=== PATIENT | male | born 1940 | race Caucasian/White ===

== ENCOUNTER 2018-05-14 16:15 | Inpatient (IN) | payer MEDICARE, BC ==
[~2018-05-14] VITALS: Ht 182.9 cm; Wt 86.2 kg
--- NOTE | 2018-05-14 17:26 | NUR ---
PT'S INSULIN PUMP PLAED IN STAND-BY MODE PER VERBAL ORDER PER EDP DR. MARTINEZ. PT'S UNSURE HOW TO DISCONNECT INSULIN PUMP, THEREFORE PUMP REMIANS ATTACHED, BUT NOT ACTIVE.
[2018-05-14 17:45] LABS: MAGNESIUM - SERUM 1.8 mg/dL (1.8-2.4)
--- NOTE | 2018-05-14 18:00 | NUR ---
COMPLETE LINEN CHANGE PERFORMED AFTER EPISODE OF URINARY INCONTINENCE.
--- NOTE | 2018-05-14 18:24 | NUR ---
URINE SENT TO THE LAB AT THIS TIME. COLLECTED VIA CLEAN CATCH.
[2018-05-14 18:53] LABS: APPEARANCE CLEAR (CLEAR); BILIRUBIN NEGATIVE (NEGATIVE); COLOR YELLOW (YELLOW); GLUCOSE NEGATIVE (NEGATIVE); KETONE NEGATIVE (NEGATIVE); NITRITE NEGATIVE (NEGATIVE); PROTEIN NEGATIVE (NEGATIVE); UROBILINOGEN NORMAL (NORMAL)
--- NOTE | 2018-05-14 19:03 | MORECARE ---
CASE MANAGEMENT DISCHARGE SUMMARY PATIENT: MELISSA PETTY UNIT: [id number] ADM DATE: 05/14/18 AGE: 78 : 40 SEX: M ROOM/BED: D.2225 AUTHOR: MANUEL CADET PHYSICIAN: REFERRING PHYSICIAN: PHILLIP BARAHONA MD DATE OF SERVICE: 05/14/18 Discharge Plan Patient Name: MELISSA PETTY [facility] [facility] 1940 Planned Disposition: Anticipated Discharge Date: 05/17/18 Discharge Date: Expected LOS: 3 Initial Reviewer: [email or web address] Initial Review Date: 05/14/2018 Generated: 05/14/18 8:03 pm Patient Name: MELISSA PETTY Page 04715 at 1903 All edits/amendments must be made on the electronic document DICTATION DATE: 05/14/181902 INTEGRATED CIRCUITS INSPECTOR: AILYN 05/14/181902 RPT#: [id number] DC DATE: STATUS: ADM IN [facility] [address] [place] [address] END OF REPORT
--- NOTE | 2018-05-14 19:10 | MORECARE ---
CASE MANAGEMENT DISCHARGE SUMMARY PATIENT: MELISSA PETTY UNIT: [id number] ADM DATE: 05/14/18 AGE: 78 : 40 SEX: M ROOM/BED: D.2225 AUTHOR: MANUEL CADET PHYSICIAN: REFERRING PHYSICIAN: PHILLIP BARAHONA MD DATE OF SERVICE: 05/14/18 Discharge Plan Patient Name: MELISSA PETTY Facility: [facility]:[place] : 1940 Planned Disposition: Anticipated Discharge Date: 05/17/18 Discharge Date: Expected LOS: 3 Initial Reviewer: [email or web address] Initial Review Date: 05/14/2018 Generated: 05/14/18 8:10 pm DCPIA - Discharge Planning Initial Assessment Updated by [id number]: Zenobia Laureano on 05/14/18 7:06 pm * Is the patient Alert and Oriented? Yes * How many steps to enter\exit or inside your home? None * PCP Dr. Baldwin in [place] * Pharmacy [facility] in [place] * Preadmission Environment Home with Family * ADLs Independent * Equipment Cane Glucometer Rolling Walker * Other Equipment Insulin pump * List name and contact numbers for known caregivers / representatives who currently or will assist patient after discharge: Berenice Petty - - [phone] * Verbal permission to speak to the caregivers and representatives has been obtained from the patient. Yes * Community resources currently utilized Home Health * Please name any agencies selected above. [facility] - has a picc line he is on 6 weeks IV therapy for foot wound. He goes to the wound clinic in [place] under Dr. Diego. Last scheduled dose of IV antibiotic is tentatively set for 05/20/18. * Additional services required to return to the preadmission environment? Yes * Can the patient safely return to the preadmission environment? No * Has this patient been hospitalized within the prior 30 days at any hospital? Yes Last DP export: 05/14/18 6:03 p Patient Name: MELISSA PETTY Page 18730 at 1910 All edits/amendments must be made on the electronic document DICTATION DATE: 05/14/181909 INTERNET SALES MANAGER: AILYN 05/14/181909 RPT#: [id number] DC DATE: STATUS: ADM IN [facility] [address] [place] [address] END OF REPORT
[2018-05-14 19:13] LABS: RED CELLS - URINE OCC /hpf (0-5); WHITE CELLS - URINE OCC /hpf (0-5)
--- NOTE | 2018-05-14 19:18 | MORECARE ---
CASE MANAGEMENT DISCHARGE SUMMARY PATIENT: MELISSA PETTY UNIT: [id number] ADM DATE: 05/14/18 AGE: 78 : 40 SEX: M ROOM/BED: D.2225 AUTHOR: HELIO,DOC PHYSICIAN: REFERRING PHYSICIAN: PHILLIP BARAHONA MD DATE OF SERVICE: 05/14/18 Discharge Plan Patient Name: MELISSA PETTY Facility: [facility]:[place] : 1940 Planned Disposition: Anticipated Discharge Date: 05/17/18 Discharge Date: Expected LOS: 3 Initial Reviewer: [email or web address] Initial Review Date: 05/14/2018 Generated: 05/14/18 8:18 pm DCP- Discharge Planning Updated by [email or web address]: Zenobia Laureano on 05/14/18 6:[address] Patient Name: MELISSA PETTY Admission Status: ER Accout number: [id number] Admission Date: 05-14-2018 : 1940 Admission Diagnosis: Attending: PHILLIP BARAHONA Current LOS: 1 Anticipated DC Date: 05-17-2018 Planned Disposition: Primary Insurance: MEDICARE A & B Discharge Planning Comments: CM met with patient and his to complete initial dc planning assessment. CM educated patient's on the CM role and verbal consent given by patient's to complete assessment. Patient lives at home with his and is normally independent in his care. He has been on IV antibiotics for a 6 week regimen for a foot wound. He has [facility] and is seen by the Wound Clinic at [place]. At discharge patient's plans to take him home with resumption of home health. Confusion is new onset for the patient and this is the second time in the past week he has gotten confused. Patient denied known discharge needs at this time. CM will continue to follow and will assist as needed with dc plans/needs. Corporate Account Executive: Zenobia Laureano RN, [facility] DCPIA - Discharge Planning Initial Assessment Updated by [email or web address]: Zenobia Laureano on 05/14/18 7:06 pm * Is the patient Alert and Oriented? Yes * How many steps to enter\exit or inside your home? None * PCP Dr. Baldwin in [place] * Pharmacy [facility] in [place] * Preadmission Environment Home with Family * ADLs Independent * Equipment Cane Glucometer Rolling Walker * Other Equipment Insulin pump * List name and contact numbers for known caregivers / representatives who currently or will assist patient after discharge: Berenice Petty - - [phone] * Verbal permission to speak to the caregivers and representatives has been obtained from the patient. Yes * Community resources currently utilized Home Health * Please name any agencies selected above. [facility] - has a picc line he is on 6 weeks IV therapy for foot wound. He goes to the wound clinic in [place] under Dr. Diego. Last scheduled dose of IV antibiotic is tentatively set for 05/20/18. * Additional services required to return to the preadmission environment? Yes * Can the patient safely return to the preadmission environment? No * Has this patient been hospitalized within the prior 30 days at any hospital? Yes Last DP export: 05/14/18 6:10 p Patient Name: MELISSA PETTY Page 00507 at 1918 All edits/amendments must be made on the electronic document DICTATION DATE: 05/14/181916 TOP DISTRIBUTION EXECUTIVE: AILYN 05/14/181916 RPT#: [id number] DC DATE: STATUS: ADM IN [facility] [address] [place] [address] END OF REPORT
[2018-05-14 21:50] VITALS: BP 144/76
--- NOTE | 2018-05-15 03:07 | NUR ---
REC;D, TO RM. 2225 VIA STRETCHER FROM ER. IN ATTENDANCE. FAMILY REQUESTING TO KNOW.WHY PATIENT IS BEING ADMITTED TO HOSPITAL. ASKED SPOUSE DID YOU TALK TO ER PHYSICIAN REGUARDING ADMITTING DIAGNOSIS.REQUESTING TO SPEAK TO ADMITTING PHYSICIAN.DR. BARAHONA AT NURSES STATION.CHARGE NURSE YESENIA ELAINE INFORMED OF REQUEST AND VERBALLY INFORMED HIM OF NEW ADMIT PLUS ADDITIONAL ORDERS IF ANY. WILL CONTINUE TO MONITOR FOR ANY CHGES. AND FOLLOW CURRENT PLAN OF CARE. ABOVE DISCUSSED WITH PRADEEP AND YESICA [employer] SUPERVISORS
[2018-05-15 03:17] VITALS: BMI 22.4
[2018-05-15 04:19] LABS: BASOPHILS 0.2 % (0-2); HEMATOCRIT 30.1 % (42.0-54.0); HEMOGLOBIN 9.5 g/dL (13.5-17.5); IMMATURE GRANULOCYTES 0.6 % (0-5); LYMPHOCYTES 8.3 % (15-50); MCHC 31.6 g/dL (31.0-37.0); MEAN PLATELET VOLUME 10.4 fL (7.4-10.4); MONOCYTES 8.7 % (2-11); NEUTROPHILS 81.2 % (40-80); PLATELET COUNT 125 10x3/uL (130-400); RBC 3.96 10x6/uL (4.20-6.10); RDW 19.6 % (11.5-14.5); WBC 8.8 10x3/uL (4.8-10.8)
[2018-05-15 04:29] LABS: ANION GAP 25.1 mmol/L (8-16); CALCIUM 9.1 mg/dL (8.5-10.1); CARBON DIOXIDE 15.8 mmol/L (21.0-32.0); CREATININE - SERUM 5.4 mg/dL (0.6-1.3); POTASSIUM - SERUM 4.9 mmol/L (3.5-5.1)
--- NOTE | 2018-05-15 04:34 | NUR ---
PT LYING IN BED RESTING, NO SIGNS OF DISTRESS. FAMILY AT BEDSIDE. DARNELL ON. DENIES NEEDS AT THIS TIME. CL IN REACH
--- NOTE | 2018-05-15 07:20 | NUR ---
PT RESTING IN BED, EYES CLOSED. AT BEDSIDE. NO C/O PAIN. NO S/S OF ACUTE DISTRESS NOTED. PT ORIENTED TO PERSON ONLY. PT CONFUSED. IN RENAL FAILURE. PT FALL RISK, DARNELL ALARM ON AND WORKING. PT HAS INSULIN PUMP, ER DISCONNECTED IT. PT DIABETIC. IV TO LEFT AC, SITE PATENT WITHOUT REDNESS OR SWELLING. NS INFUSING AT 125ML/HR. PICC TO RIGHT UPPER ARM, SITE PATENT WITHOUT REDNESS OR SWELLING, SL. CLOSED WOUNDS TO RIGHT FOOT, DRESSING CDI. PT DENIES ANYTHING FURTHER AT THIS TIME. CALL LIGHT IN REACH. FALL PRECAUTIONS IN PLACE. WILL CONTINUE TO MONITOR.
[2018-05-15 08:47] VITALS: BP 126/56
[2018-05-15 08:49] LABS: % SATURATION 18 % (15-55); IRON 61 ug/dl (35-150); TOTAL IRON BIND CAPACITY 337 ug/dl (260-445); UNSAT IRON BIND CAPACITY 276 ug/dl (150-375)
[2018-05-15] MEDS ORDERED: ELIQUIS2.5 MG PO (08:51)
[2018-05-15] MEDS ORDERED: CYMBALTA60 MG PO (08:52)
[2018-05-15] MEDS ORDERED: ROPINIROLE HCL2 MG PO ×2 (08:55→08:57)
[2018-05-15] MEDS ORDERED: MAXIPIME1 GM IV (08:59)
[2018-05-15] MEDS ORDERED: TRAVATAN Z2.5 ML EACH EYE (08:59)
[2018-05-15] MEDS ORDERED: LASIX80 MG PO (09:00)
[2018-05-15] MEDS ORDERED: PEPCID AC20 MG PO (09:01)
[2018-05-15] MEDS ORDERED: SODIUM BICARBO650 MG PO (09:02)
[2018-05-15] MEDS ORDERED: HUMALOG 30100 UNITS/ SC (09:05)
--- NOTE | 2018-05-15 10:00 | NUR ---
PLACED HARPER, 16FR, 10ML NS TO INFLATE BALLOON. HARPER PLACED FOR STRICT I&O'S. PT IN RENAL FAILURE. NO C/O PAIN. NO S/S OF ACUTE DISTRESS NOTED. AT BEDSIDE. FALL PRECAUTIONS IN PLACE. WILL CONTINUE TO MONITOR.
[2018-05-15 12:19] VITALS: BP 126/43
[2018-05-15 12:31] VITALS: BMI 22.3
--- NOTE | 2018-05-15 18:53 | NUR ---
PT RESTING IN BED, EYES CLOSED. RESPIRATIONS EVEN AND UNLABORED. NO C/O PAIN. NO S/S OF DISTRESS NOTED. AT BEDSIDE. FALL PRECAUTIONS IN PLACE. PT DENIES ANYTHING FURTHER AT THIS TIME. CALL LIGHT IN REACH. BED IN LOWEST POSITION. WILL CONTINUE TO MONITOR.
[2018-05-15 20:08] VITALS: BP 137/51
[2018-05-16] VITALS (16 sets, daily range): BP systolic 95–150; BP diastolic 49–69; Ht 182.9 cm; Wt 86.2 kg
--- NOTE | 2018-05-16 02:47 | NUR ---
REC'D. IN BED AT BEDSIDE DR. BARAHONA HERE.EYES OPEN WHEN NAME CALLED, BUT REMAINS SOMEWHAT LETHARGIC. REIENFORCED TO NPO TILL MORE ALERT NOT TO ASPIRATE. VOICES UNDERSTANDING,WILL CONTINUE TO MONITOR FOR ANY CHGES.AND FOLLOW CURRENT PLAIN OF CARE
--- NOTE | 2018-05-16 03:39 | NUR ---
PT RESTING WITH EYES CLOSED. BREATHING EVEN AND UNLABORED. FAMILY AT BEDSIDE. DENIES NEEDS AT THIS TIME. INFORMED THAT ROLLER HAND WOULD BE ALONG SHORTLY. WILL CONTINUE POC.
[2018-05-16 07:30] LABS: BASOPHILS 0.3 % (0-2); EOSINOPHILS 0.6 % (0-7); HEMATOCRIT 33.1 % (42.0-54.0); HEMOGLOBIN 10.4 g/dL (13.5-17.5); IMMATURE GRANULOCYTES 0.7 % (0-5); LYMPHOCYTES 7.8 % (15-50); MCH 24.1 pg (26.0-34.0); MCHC 31.4 g/dL (31.0-37.0); MCV 76.8 fL (80.0-100.0); MEAN PLATELET VOLUME 10.3 fL (7.4-10.4); MONOCYTES 19.9 % (2-11); NEUTROPHILS 70.7 % (40-80); RBC 4.31 10x6/uL (4.20-6.10); RDW 20.1 % (11.5-14.5)
--- NOTE | 2018-05-16 07:30 | NUR ---
REPORT RECIEVED ASSUMED CARE. PATIENT IN BED WITH IV INTACT. O2 SATS DOWN TO 82% O2 ON 2LNC. TURNED UP TO 4 LNC. SATS UP TO 88, 89%. PATIENT LUNG SOUNDS ARE CRACKLEY AND LUNGS SOUND FULL OF FLUID. NIGHT NURSE STATED HARDLY ANY URINE O/P OVER NIGHT. PATIENT BP 115/43. HARPER INTACT. FAMILY AT BEDSIDE. EXPLAINED TO FAMILY I WOULD TALK TO PHYSICIAN ABOUT PATIENT'S LUNG SOUND, BREATHING AND URINE O/P. VERBALIZED UNDERSTANDING.
[2018-05-16 07:31] LABS: PLATELET COUNT 195 10x3/uL (130-400); WBC 15.4 10x3/uL (4.8-10.8)
[2018-05-16 07:58] LABS: ANION GAP 29.3 mmol/L (8-16); CALCIUM 9.2 mg/dL (8.5-10.1); CARBON DIOXIDE 13.4 mmol/L (21.0-32.0)
--- NOTE | 2018-05-16 08:00 | NUR ---
IWLLIAM SMITH NOTIFIED ABOUT PATIENTS BREATHING, URINE OP, AND POTASSIUM 6.7. STATED SHE WOULD TAKE A LOOK AT HIM. NEW ORDERS RECIEVED AND CARRIED OUT.
[2018-05-16 08:05] LABS: CREATININE - SERUM 7.4 mg/dL (0.6-1.3)
[2018-05-16 08:07] LABS: POTASSIUM - SERUM 6.7 mmol/L (3.5-5.1)
--- NOTE | 2018-05-16 08:20 | NUR ---
NGT ATTEMPTED X 2 PER ORDER TO GET KAYEXELATE DOWN. PATIENT FIGHTING AND MOVING TOO MUCH TO GET NGT DOWN. NOTFIED WILLIAM. NO NEW ORDERS RECIEVED AT THIS TIME. WENT BACK TO ROOM. PATIENT STRUGGLING TO BREATHE. CHRISTIANE BERNAL AT BS. RAPID RESPONSE CALLED AT THIS TIME.
[2018-05-16 09:19] LABS: FOLATE (FOLIC ACID) - SERUM 18.8 ng/mL (>3.0)
--- NOTE | 2018-05-16 10:15 | NUR ---
RECEIVED PATIENT BY BED AT THIS TIME. CURRENTLY ON NONREBREATHER 100% OXYGEN. BP AND HEART RATE STABLE. NORMAL SINUS RHYTHM. O2 SAT 100%. TEMPERATURE 96.1. PATIENT LETHARGIC AND DISORIENTED. WILL OBTAIN NEW ORDERS AND CONTINUE TO MOPNITOR
--- NOTE | 2018-05-16 10:20 | NUR ---
ALL MEDS ORDERED AND GIVEN FROM RENAL AND DURING RAPID. PATIENT AC IV REMOVED DURING RAPID DUE TO LEAKING. PATIENT HAS RIGHT PICC FLUSHES WELL AND WNL. PATIENT MOVED AT THIS TIME TO 2301 PER ORDERS.
--- NOTE | 2018-05-16 11:20 | NUR ---
tRIALYSIS CATHETER PLACED BY LUIS ALCARAZ IN RIGHT INTERNAL JUGULAR. STAT CHEST X-RAY ORDERED.
[2018-05-16 12:15] LABS: COMPLEMENT C4 15.2 mg/dL (17.4-52.2)
--- NOTE | 2018-05-16 12:15 | NUR ---
DIALYSIS VIA TRIALYSIS CATHETER INITIATED AT THIS TIME.
[2018-05-16 12:20] LABS: BASOPHILS 0.2 % (0-2); EOSINOPHILS 0.2 % (0-7); HEMATOCRIT 31.7 % (42.0-54.0); HEMOGLOBIN 9.9 g/dL (13.5-17.5); IMMATURE GRANULOCYTES 0.3 % (0-5); LYMPHOCYTES 6.2 % (15-50); MCH 24.1 pg (26.0-34.0); MCHC 31.2 g/dL (31.0-37.0); MCV 77.1 fL (80.0-100.0); MONOCYTES 5.5 % (2-11); NEUTROPHILS 87.6 % (40-80); PLATELET COUNT 166 10x3/uL (130-400); RBC 4.11 10x6/uL (4.20-6.10); RDW 19.8 % (11.5-14.5); WBC 12.8 10x3/uL (4.8-10.8)
[2018-05-16 12:21] LABS: CALCIUM 9.2 mg/dL (8.5-10.1); CHOL - HDL RATIO 2.8 ratio (2.3-4.9); CREATININE - SERUM 7.6 mg/dL (0.6-1.3); LDL-HDL RATIO 1.5 ratio (1.5-3.5)
[2018-05-16 12:23] LABS: ANION GAP 24.7 mmol/L (8-16); CARBON DIOXIDE 17.7 mmol/L (21.0-32.0); POTASSIUM - SERUM 5.4 mmol/L (3.5-5.1)
[2018-05-16 12:26] LABS: PHOSPHOROUS 10.3 mg/dL (2.5-4.9)
--- NOTE | 2018-05-16 12:30 | NUR ---
HR AND B/P DROPPING AT THIS TIME, FAMILY AT BEDSIDE
--- NOTE | 2018-05-16 13:00 | NUR ---
DR. BARAHONA AT BEDSIDE, SPOKE AT LENGTH WITH PT FAMILY, NO NEW ORDERS AT THIS TIME,
--- NOTE | 2018-05-16 13:15 | NUR ---
B/P DROPPING AT THIS TIME, FAMILY AT BEDSIDE,
--- NOTE | 2018-05-16 14:19 | MORECARE ---
CASE MANAGEMENT DISCHARGE SUMMARY PATIENT: MELISSA PETTY UNIT: [id number] ADM DATE: 05/14/18 AGE: 78 : 40 SEX: M ROOM/BED: D.2301 AUTHOR: HELIO,DOC PHYSICIAN: REFERRING PHYSICIAN: PHILLIP BARAHONA MD DATE OF SERVICE: 05/16/18 Discharge Plan Patient Name: MELISSA PETTY Facility: [facility]:[place] : 1940 Planned Disposition: Anticipated Discharge Date: 05/17/18 Discharge Date: Expected LOS: 3 Initial Reviewer: [email or web address] Initial Review Date: 05/14/2018 Generated: 05/16/18 3:19 pm Comments DCP- Discharge Planning Updated by [email or web address]: Hoda Martinez on 05/16/18 1:[address] CM spoke with Cheri from [facility] [phone]. She stated they was actively seeing patient and would resume care upon discharge. Just to notify them upon discharge. CM will continue to follow and assist as needed with discharge planning / needs. DCP- Discharge Planning Updated by [id number]: Zenobia Laureano on 05/14/18 6:[address] Patient Name: MELISSA PETTY Admission Status: ER Accout number: [id number] Admission Date: 05-14-2018 : 1940 Admission Diagnosis: Attending: PHILLIP BARAHONA Current LOS: 1 Anticipated DC Date: 05-17-2018 Planned Disposition: Primary Insurance: MEDICARE A & B Discharge Planning Comments: CM met with patient and his to complete initial dc planning assessment. CM educated patient's on the CM role and verbal consent given by patient's to complete assessment. Patient lives at home with his and is normally independent in his care. He has been on IV antibiotics for a 6 week regimen for a foot wound. He has [facility] and is seen by the Wound Clinic at [place]. At discharge patient's plans to take him home with resumption of home health. Confusion is new onset for the patient and this is the second time in the past week he has gotten confused. Patient denied known discharge needs at this time. CM will continue to follow and will assist as needed with dc plans/needs. Dinkey Mechanic: Zenobia Laureano RN, [facility] DCPIA - Discharge Planning Initial Assessment Updated by [id number]: Zenobia Laureano on 05/14/18 7:06 pm * Is the patient Alert and Oriented? Yes * How many steps to enter\exit or inside your home? None * PCP Dr. Baldwin in [place] * Pharmacy [facility] in [place] * Preadmission Environment Home with Family * ADLs Independent * Equipment Cane Glucometer Rolling Walker * Other Equipment Insulin pump * List name and contact numbers for known caregivers / representatives who currently or will assist patient after discharge: Berenice Petty - - [phone] * Verbal permission to speak to the caregivers and representatives has been obtained from the patient. Yes * Community resources currently utilized Home Health * Please name any agencies selected above. [facility] - has a picc line he is on 6 weeks IV therapy for foot wound. He goes to the wound clinic in [place] under Dr. Diego. Last scheduled dose of IV antibiotic is tentatively set for 05/20/18. * Additional services required to return to the preadmission environment? Yes * Can the patient safely return to the preadmission environment? No * Has this patient been hospitalized within the prior 30 days at any hospital? Yes Last DP export: 05/14/18 6:18 p Patient Name: MELISSA PETTY Page 32240 at 1419 All edits/amendments must be made on the electronic document DICTATION DATE: 05/16/181417 DIABETOLOGIST: AILYN 05/16/181417 RPT#: [id number] DC DATE: STATUS: ADM IN [facility] [address] [place] [address] END OF REPORT
--- NOTE | 2018-05-16 15:00 | NUR ---
PATIENT resting IN BED WITH STABLE VS ON NONREBREATHER AT 100% O2. RESTRAINTS STILL NECESSARY TO KEEP PATIENT FROM PULLING OUT TRIALYSIS CATHETER. CHANGED ALL LINENS, GAVE BATH, AND TURNED TO LEFT SIDE. WILL CONTINUE TO MONITOR
--- NOTE | 2018-05-16 18:45 | NUR ---
ELEVATED HOB 30 DEGREES PER ORDER. TURNED TO RIGHT SIDE. O2 INFUSING VIA HIGH FLOW NC AT 13 LITERS/MIN. VSS.
--- NOTE | 2018-05-16 19:30 | NUR ---
ASSESSMENT COMPLETE, PER NURSING FLOWSHEET, PATIENT REPOSITIONED, ORAL CARE PROVIDED, PATIENT REMAINS IN SOFT BUE WRIST RESTRAINTS
--- NOTE | 2018-05-16 20:00 | NUR ---
DAUGHTER AT BEDSIDE, QUESTIONS ANSWERED, UPDATE GIVEN
--- NOTE | 2018-05-16 21:00 | NUR ---
PATIENT REPOSITIONED, ROM PERFORMED, CONTINUE POC
--- NOTE | 2018-05-16 23:00 | NUR ---
REASSESSMENT COMPLETE, PER NURSING FLOWSHEET, PATIENT REPOSITIONED, ORAL CARE PROVIDED, VSS
[2018-05-17] VITALS (24 sets, daily range): BP systolic 111–151; BP diastolic 48–86
--- NOTE | 2018-05-17 01:00 | NUR ---
PATIENT REPOSITIONED, HARPER CARE PROVIDED, NO OTHER NEEDS NOTED AT THIS TIME
--- NOTE | 2018-05-17 03:00 | NUR ---
RE-ASSESSMENT COMPLETE, PATIENT REPOSITIONED, ORAL CARE PROVIDED, CONTINUE POC
--- NOTE | 2018-05-17 05:00 | NUR ---
PATIENT REPOSITIONED, PARTIAL LINEN CHANGE, VSS
--- NOTE | 2018-05-17 05:30 | NUR ---
SON AT BEDSIDE, UPDATE GIVEN, QUESTIONS ANSWERED
[2018-05-17 05:32] LABS: HEMATOCRIT 28.6 % (42.0-54.0); HEMOGLOBIN 9.2 g/dL (13.5-17.5); MCH 24.1 pg (26.0-34.0); MCHC 32.2 g/dL (31.0-37.0); MEAN PLATELET VOLUME 10.8 fL (7.4-10.4); RBC 3.82 10x6/uL (4.20-6.10); RDW 19.9 % (11.5-14.5); WBC 13.1 10x3/uL (4.8-10.8)
[2018-05-17 05:33] LABS: MCV 74.9 fL (80.0-100.0); PLATELET COUNT 93 10x3/uL (130-400)
[2018-05-17 05:58] LABS: CALCIUM 8.6 mg/dL (8.5-10.1); CARBON DIOXIDE 18.5 mmol/L (21.0-32.0); CHLORIDE - SERUM 99 mmol/L (98-107); CREATINE KINASE 243 UL (21-232); CREATININE - SERUM 6.3 mg/dL (0.6-1.3); MAGNESIUM - SERUM 1.7 mg/dL (1.8-2.4); POTASSIUM - SERUM 4.7 mmol/L (3.5-5.1); SODIUM 139 mmol/L (136-145); eGFR NON AFRICAN AMERICAN 9 mL/min (90-120)
[2018-05-17 06:00] LABS: PHOSPHOROUS 7.6 mg/dL (2.5-4.9)
[2018-05-17 06:01] LABS: CALC OSMOLALITY 325 mosm/kg (275-300); GLUCOSE 402 mg/dL (74-106); UREA NITROGEN 98 mg/dL (7-18)
[2018-05-17 06:02] LABS: CKMB 23.5 U/L (0.0-3.6)
--- NOTE | 2018-05-17 06:59 | NUR ---
DR MILLIGAN NOTIFIED OF DESIREE MOJICA M.D. INPUTTING NEW ORDERS
--- NOTE | 2018-05-17 07:00 | NUR ---
[place] RESTING IN BED WITH STABLE VS. STILL LETHARGIC AND DISORIENTED X 4. SOFT WRIST RESTRAINTS STILL IN USE. ON O2 AT 11L/MIN. O2 SAT 95%. WILL CONTINUE TO MONITOR.
--- NOTE | 2018-05-17 07:08 | NUR ---
PATIENT BLADDER SCANNED X2, 27 MLS NOTED ON BOTH SCANS
[2018-05-17 07:56] LABS: LYMPHOCYTES 7 % (15-50); MONOCYTES 10 % (2-11); NEUTROPHILS 77 % (40-80); PLATELET ESTIMATE DECREASED
[2018-05-17 07:57] LABS: CRENATED CELLS OCC
--- NOTE | 2018-05-17 09:00 | NUR ---
PATIENT RESTING IN BED WITH STABLE VS. NOTIFIED WOUND CARE NURSE OF CONSULT FOR RIGHT FOOT ULCER. ALSO PROPPED FEET ON PILLOWS TO PREVENT BREAKDOWN. WILL CONTINUE TO MONITO
--- NOTE | 2018-05-17 09:33 | NUR ---
Nutrition follow-up: NPO due to confusion, lethargy per nursing Speech consult noted Labs unavailable at this time Wt: 165# First dialysis treatment 05/16 - again today Will need nutrition support if NPO x 48 hours RDN following.
[2018-05-17 11:00] LABS: CALCIUM 8.2 mg/dL (8.5-10.1); CREATININE - SERUM 6.6 mg/dL (0.6-1.3)
--- NOTE | 2018-05-17 11:00 | NUR ---
PULLED PATIENT UP, TURNED, AND ROLLED TO RIGHT SIDE. BED LINENS ARE CLEAN. NOTIFIED DR. BARAHONA OF CRITICAL TROPININ LAB AND ALSO ASKED IF HE WANTS TO TREAT LOW MAGNESIUM LEVEL. WAITING FOR ORDERS.
[2018-05-17 11:04] LABS: ANION GAP 20.3 mmol/L (8-16); CARBON DIOXIDE 23.7 mmol/L (21.0-32.0)
[2018-05-17 11:05] LABS: TROPONIN-I 0.335 ng/mL (0.000-0.060)
--- NOTE | 2018-05-17 11:06 | NUR ---
NOTIFIED PT NURSE ISAMAR OF CRITICAL GLUCOSE AND TROPONIN
--- NOTE | 2018-05-17 13:00 | NUR ---
PATIENT RESTING IN BED WITHS TABLE VITAL SINGS. TITRATED O2 DOWN TO 9 LITERS/MIN VIA NC TOLERATED. WILL CONTINUE TO MONITOR
[2018-05-17 14:26] LABS: ANA REFLEX - DBL STRANDED DNA 1 IU/mL (0-9); ANA REFLEX - DIRECT Negative (Negative)
[2018-05-17 15:29] LABS: SPE - ALBUMIN 3.1 g/dL (2.9-4.4); SPE - ALPHA-1 GLOBULIN 0.2 g/dL (0.0-0.4); SPE - ALPHA-2 GLOBULIN 0.6 g/dL (0.4-1.0); SPE - BETA GLOBULIN 0.9 g/dL (0.7-1.3); SPE - GAMMA GLOBULIN 1.3 g/dL (0.4-1.8); SPE - M-SPIKE Not Observed g/dL (Not Observed); SPE - TOTAL PROTEIN 6.1 g/dL (6.0-8.5)
--- NOTE | 2018-05-17 15:42 | NUR ---
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 It has yellow/virk wound bed and small amount of serous drainage. Right great toe has scab at the nail. Left great to has scab at the nail. Right #2 and #3 toes amputated. Recommend: covering wound on lateral foot with mepilex to protect.
--- NOTE | 2018-05-17 17:00 | NUR ---
VSS. PT STILL DISORTIENTED BUT SUPPOSED TO RECEIVE DIALYSIS TONIGHT. TURNED PATINED TO LEFT RIGHT SIDE. LINENS CLEAN AND DRY. WILL CONTINUE TO MONITOR
--- NOTE | 2018-05-17 19:30 | NUR ---
SHIFT ASSESSMENT COMPLETE PER NURSING FLOWSHEET, PATIENT REPOSITIONED, ORAL CARE PROVIDED, CONTINUE POC
--- NOTE | 2018-05-17 21:00 | NUR ---
PATIENT REPOSITIONED, SPOKE WITH ON PHONE, UPDATED GIVEN, QUESTIONS ANSWERED, WILL CONTINUE TO MONITOR
--- NOTE | 2018-05-17 23:00 | NUR ---
REASSESSMENT COMPLETE, PATIENT REPOSITIONED, ORAL CARE PROVIDED NO OTHER NEEDS NOTED AT THIS TIME
[2018-05-18] VITALS (24 sets, daily range): BP systolic 112–148; BP diastolic 50–86
--- NOTE | 2018-05-18 01:00 | NUR ---
PATIENT REPOSITIONED, HARPER CARE PROVIDED, DIALYSIS IN PROGRESS
--- NOTE | 2018-05-18 03:00 | NUR ---
REASSESSMENT COMPLETE, ORAL CARE PROVIDED, PATIENT REPOSITIONED, C/L IN REACH
[2018-05-18 04:52] LABS: BASOPHILS 0.2 % (0-2); EOSINOPHILS 0.4 % (0-7); HEMATOCRIT 28.2 % (42.0-54.0); HEMOGLOBIN 9.1 g/dL (13.5-17.5); IMMATURE GRANULOCYTES 0.3 % (0-5); LYMPHOCYTES 5.2 % (15-50); MCH 23.9 pg (26.0-34.0); MCHC 32.3 g/dL (31.0-37.0); MCV 74.2 fL (80.0-100.0); MEAN PLATELET VOLUME 9.7 fL (7.4-10.4); MONOCYTES 6.7 % (2-11); NEUTROPHILS 87.2 % (40-80); PLATELET COUNT 88 10x3/uL (130-400); RDW 19.5 % (11.5-14.5)
[2018-05-18 05:01] LABS: ANION GAP 17.1 mmol/L (8-16); CALCIUM 8.5 mg/dL (8.5-10.1)
[2018-05-18 05:02] LABS: CREATININE - SERUM 4.7 mg/dL (0.6-1.3); POTASSIUM - SERUM 3.1 mmol/L (3.5-5.1)
[2018-05-18 07:28] LABS: HEPATITIS BE ANTIGEN Negative (Negative)
--- NOTE | 2018-05-18 09:17 | NUR ---
PATIENT REPOSITIONED, COMPLETE LINEN CHANGE, NO OTHER NEEDS NOTED AT THIS TIME
--- NOTE | 2018-05-18 10:33 | NUR ---
CHANGED OUT ALL TUBING FOR IV FLUIDS/ABX, kCL RIDER. SWAB CAPS AND STICKERS APPLIED. TURNED O2 DOWN TO 5L/MIN DUE TO O2 SAT 96%. FAMILY MEMBER IN ROOM. WILL CONTINUE TO MONITOR
[2018-05-18 11:36] LABS: ANION GAP 14.2 mmol/L (8-16); CALCIUM 8.6 mg/dL (8.5-10.1); CREATININE - SERUM 5.2 mg/dL (0.6-1.3); POTASSIUM - SERUM 3.2 mmol/L (3.5-5.1)
--- NOTE | 2018-05-18 13:44 | NUR ---
DIALYSIS NURSE HERE TO START DIALYSIS. PT STABLE. FAMILY IN ROOM
--- NOTE | 2018-05-18 14:44 | NUR ---
TEMP 96.7. GAVE WARM BLANKET. PT RECEIVING DIALYSIS AT THIS TIME WITH FAMILY MEMBER IN ROOM. VSS.
--- NOTE | 2018-05-18 16:30 | NUR ---
DIALSIS COMPLETE. PATIENT VSS STABLE AND IS SEEMING A LITTLE LESS CONFUSED.
--- NOTE | 2018-05-18 18:00 | NUR ---
PROCEEDED TO DRESS RIGHT FOOT WOUND IT IS TREATED BY PATIENTS HOME HEALTH NURSE AT HOME (PER PATIENTS ). UNABLE TO CONTACT WOUND CARE NURSE TODAY.
--- NOTE | 2018-05-18 19:15 | NUR ---
THIS NURSE ACCOMPANINED PATIENT TO CT
[2018-05-18 19:35] LABS: APTT 37.8 SECONDS (22.8-39.4); INR 1.49 (0.85-1.17); PROTIME 17.5 SECONDS (11.6-15.0)
[2018-05-18 19:36] LABS: HEMATOCRIT 31.6 % (42.0-54.0); HEMOGLOBIN 10.2 g/dL (13.5-17.5); MCH 24.5 pg (26.0-34.0); MCHC 32.3 g/dL (31.0-37.0); PLATELET COUNT 90 10x3/uL (130-400); RBC 4.16 10x6/uL (4.20-6.10); RDW 20.4 % (11.5-14.5); WBC 15.7 10x3/uL (4.8-10.8)
--- NOTE | 2018-05-18 20:00 | NUR ---
RETURN TO ICU ROOM [address] SHIFT ASSESSMENT COMPLETE, PATIENT REPOSITIONED, ORAL CARE PROVIDED, REPOSITIONED MONITORING EQUIPMENT. SON & DAUGHTER AT BEDSIDE, UPDATE GIVEN, QUESTIONS ANSWERED
[2018-05-18 20:03] LABS: HYPOCHROMASIA 1+; LYMPHOCYTES 2 % (15-50); MONOCYTES 3 % (2-11); NEUTROPHILS 93 % (40-80); PLATELET ESTIMATE DECREASED; PLATELET MORPHOLOGY NORMAL PLT MORPH; ROULEAUX 1+; TARGET CELLS OCC
[2018-05-18 20:04] LABS: SCHISTOCYTES OCC
--- NOTE | 2018-05-18 21:00 | NUR ---
PATIENT REQUESTING TO USE BEDPAN. NO BM CURRENTLY, BUT IS PASSING GAS. PATIENT REPOSITIONED
--- NOTE | 2018-05-18 23:00 | NUR ---
RE-ASSESSMENT COMPLETE, PATIENT REPOSITIONED, ORAL CARE PROVIDED, VSS, CONTINUE POC
[2018-05-19] VITALS (23 sets, daily range): BP systolic 123–153; BP diastolic 60–81
--- NOTE | 2018-05-19 01:00 | NUR ---
PATIENT REPOSITIONED, HARPER CARE PROVIDED, NO OTHER NEEDS VOICED OR NOTED AT THIS TIME
--- NOTE | 2018-05-19 03:00 | NUR ---
RE-ASSESSMENT COMPLETE PER NURSING FLOWSHEET, PATIENT REPOSITIONED, ORAL CARE PROVIDED, COMPLETE LINEN CHANGE, HEELS BRIDGED, C/L IN REACH
--- NOTE | 2018-05-19 05:00 | NUR ---
PATIENT REPOSITIONED, VSS, NO OTHER NEEDS VOICED OR NOTED AT THIS TIME
[2018-05-19 05:51] LABS: BASOPHILS 0.1 % (0-2); EOSINOPHILS 0.4 % (0-7); HEMATOCRIT 29.1 % (42.0-54.0); HEMOGLOBIN 9.2 g/dL (13.5-17.5); IMMATURE GRANULOCYTES 0.5 % (0-5); LYMPHOCYTES 10.9 % (15-50); MCH 24.2 pg (26.0-34.0); MCHC 31.6 g/dL (31.0-37.0); MCV 76.6 fL (80.0-100.0); MEAN PLATELET VOLUME 10.2 fL (7.4-10.4); NEUTROPHILS 78.1 % (40-80); PLATELET COUNT 91 10x3/uL (130-400); RDW 20.4 % (11.5-14.5); WBC 13.5 10x3/uL (4.8-10.8)
[2018-05-19 06:34] LABS: ANION GAP 19.5 mmol/L (8-16); CALCIUM 8.9 mg/dL (8.5-10.1); CARBON DIOXIDE 25.8 mmol/L (21.0-32.0); CREATININE - SERUM 4.4 mg/dL (0.6-1.3); MAGNESIUM - SERUM 1.9 mg/dL (1.8-2.4); POTASSIUM - SERUM 4.3 mmol/L (3.5-5.1)
--- NOTE | 2018-05-19 07:00 | NUR ---
PATIENT RESTING IN BED AWAKE AND ALERT. DISORIENTED TO PLACE AND TIME. O2 AT 10L NC. SATURATION 96%. TITRATED O2 DOWN TO 8L/MIN. RESPIRATIONS EVEN UNLABORED. HEELS FLOATED. RIGHT FOOT WOUND DRESSED. VSS. WILL CONTINUE TO MONITOR.
--- NOTE | 2018-05-19 08:49 | NUR ---
CALLED [facility] TO ASK ABOUT SWALLOW EVAL'S ON WEEKENDS. THEY SAID IT USUALLY HOLDS OFF TILL SUNDAY UNLESS ITS VERY IMPORTANT. WILL ASK DR. BARAHONA WHAT HE THINKS.
--- NOTE | 2018-05-19 09:00 | NUR ---
IN ROOM. NURSE FLOATED HEELS. VSS. O2 INFUSING AT 8L/MIN
--- NOTE | 2018-05-19 10:30 | NUR ---
TAKING PATIENT DOWN TO RADIOGRAPHY FOR LUMBAR PUNCTURE. SIGNED CONSENT FORMS.
--- NOTE | 2018-05-19 11:20 | NUR ---
RETURNED FROM LUMBAR PUNCTURE AT THIS TIME. SEE AMENDED NOTE FOR DETAILS OF PROCEDURE
[2018-05-19 12:32] LABS: GLUCOSE - CSF 136 MG/DL (40-75); PROTEIN - CSF 37 MG/DL (12-60)
[2018-05-19 12:39] LABS: ALBUMIN 1.8 g/dL (3.4-5.0); ANION GAP 13.7 mmol/L (8-16); BILIRUBIN - DIRECT 0.37 mg/dL (0.00-0.30); CALCIUM 8.4 mg/dL (8.5-10.1); CARBON DIOXIDE 30.2 mmol/L (21.0-32.0); CREATININE - SERUM 4.8 mg/dL (0.6-1.3); POTASSIUM - SERUM 3.9 mmol/L (3.5-5.1); PROTEIN - SERUM 5.5 g/dL (6.4-8.2)
--- NOTE | 2018-05-19 12:45 | NUR ---
PATIENT TAKEN DOWN TO RADIOGRAPHY FOR LUMBAR PUNCTION AT 1045. RETURNED AT THIS TIME. SINCE PT HAD TO LAY FLAT ON STOMACH FOR PROCEDURE, 100% O2 WAS GIVEN TO PATIENT VIA NON-REBREATHER MASK. O2 SAT MAINTAINED 85% THROUGHOUT PROCEDURE (ABOUT 10 MINUTES), BUT PATIENT WAS STABLE OTHEWISE. QUICKLY RETURNED PATIENT TO BED ON BACK AND ELEVATED HEAD. O2 SAT RETURNED TO 97% AND PLACED BACK ON O2 HIGH FLOW NC AT 7 LITERS. WILL CONTINUE TO MONITOR
[2018-05-19 12:46] LABS: APPEARANCE - CSF CLEAR
[2018-05-19 12:52] LABS: RBC - CSF 2 cmm (0-0)
--- NOTE | 2018-05-19 13:30 | NUR ---
PLACED PATIENT ON BEDPAN. NO BM. VSS. FAMILY IN ROOM.
--- NOTE | 2018-05-19 14:30 | NUR ---
DR. ARTEAGA CAME BY TO SEE PATIENT FOR CONSULT. NO ORDERS GIVEN.
--- NOTE | 2018-05-19 15:16 | NUR ---
PERFORMED ORAL CARE WITH MOUTH SWABS AND PERIDEX. PATIENT HAS SORES IN MOUTH.
--- NOTE | 2018-05-19 16:19 | NUR ---
RIGHT FOOT DRESSING CHANGED.
--- NOTE | 2018-05-19 19:30 | NUR ---
SHIFT ASSESSMENT COMPLETE, PER NURSING FLOWSHEET, PATIENT REPOSITIONED, ORAL CARE PROVIDED, NO OTHER NEEDS VOICED OR NOTED AT THIS TIME.
--- NOTE | 2018-05-19 20:00 | NUR ---
DAUGHTER AT BEDSIDE, UPDATE GIVEN, QUESTIONS ANSWERED. INFORMED DAUGHTER THAT THIS PATIENT DOES HAVE TRANSFER ORDER TO GO TO ROOM 2109, NO OTHER NEEDS VOICED OR NOTED AT THIS TIME.
--- NOTE | 2018-05-19 21:55 | NUR ---
REPORT CALLED TO CHELE GLASS, MED II.
--- NOTE | 2018-05-19 22:15 | NUR ---
PATIENT MOVED FROM ICU ROOM 2301 TO MED II ROOM 2109, WITH DAUGHTER AT BEDSIDE
--- NOTE | 2018-05-19 22:37 | NUR ---
RECEIVED FROM ER VIA BED. ALERT/ORIENTED X3. DENIES PAIN OR ANY NEEDS. INITIAL ASSESSMENTS DONE PER NSG FLOWCHART. ORIENTED TO ROOM AND CALL LIGHT. HIS DAUGHTER IS PRESENT IN ROOM.
--- NOTE | 2018-05-19 23:50 | NUR ---
MADE NEW ID ARM BAND. CHECKED BS AT 180, ADMIN 2 UNITS HUMULIN R.
[2018-05-20 04:00] VITALS: BP 145/50
[2018-05-20 06:24] LABS: ALBUMIN 1.8 g/dL (3.4-5.0); BILIRUBIN - DIRECT 0.28 mg/dL (0.00-0.30); BILIRUBIN - INDIRECT 0.48 mg/dL (0.00-1.00); BILIRUBIN - TOTAL 0.76 mg/dL (0.2-1.3); CALCIUM 8.8 mg/dL (8.5-10.1); CARBON DIOXIDE 27.8 mmol/L (21.0-32.0); CREATININE - SERUM 5.7 mg/dL (0.6-1.3); PROTEIN - SERUM 5.9 g/dL (6.4-8.2)
[2018-05-20 06:25] LABS: ANION GAP 13.7 mmol/L (8-16); POTASSIUM - SERUM 4.5 mmol/L (3.5-5.1)
--- NOTE | 2018-05-20 06:25 | NUR ---
ADMIN SCHED IV MEDS. REQUESTED MORE ICE WATER AND ASSISTANCE TURNING ON THE TV.
[2018-05-20 08:56] VITALS: BP 137/73
[2018-05-20 09:09] LABS: ANTI-GLOMERULAR BASMENT MEMBRN 4 units (0-20)
--- NOTE | 2018-05-20 11:16 | NUR ---
BLOOD SUGAR OF 233, 4UNITS OF INSULIN GIVEN PER S/S. PT DENIES ANY NEED AT THIS TIME. CALL LIGHT IN REACH, AT BEDSIDE, NAD NOTED, WILL CONITNUE TO MONITOR.
--- NOTE | 2018-05-20 13:19 | NUR ---
Nutrition follow-up: Pt just out of ICU Diet ordered is puree with honey thick liquids due to swallowing issues PO intake has been poor Labs reviewed Wt: 165# RDN following.
--- NOTE | 2018-05-20 14:03 | NUR ---
PT RESTING COMFORTABLY, NO CHANGES FROM PREVIOUS ASSESSMENT. CALL LIGHT IN REACH, FAMILY AT BEDSIDE, NAD NOTED, WILL CONTINUE TO MONITOR.
--- NOTE | 2018-05-20 16:14 | NUR ---
BLOOD SUGAR OF 331, 8UNITS OF HUMULIN GIVEN PER S/S. PT RESTING COMFORTABLY IN BED, DENIES ANY NEEDS AT THIS TIME. CALL LIGHT IN REACH, FAMILY AT BEDSIDE, NAD NOTED.
[2018-05-20 17:10] LABS: UPE RAND - ALBUMIN 51.8 % (()); UPE RAND - ALPHA 1 GLOBULIN 2.8 % (()); UPE RAND - ALPHA 2 GLOBULIN 7.6 % (()); UPE RAND - GAMMA GLOBULIN 19.8 % (())
--- NOTE | 2018-05-20 17:56 | NUR ---
PT TRANSFERED TO DIALYSIS VIA BED, NAD NOTED.
--- NOTE | 2018-05-20 19:20 | NUR ---
RESUMING PATIENT CARE. PATIENT CURRENTLY IN DIALYSIS.
[2018-05-20 20:00] VITALS: BP 119/67
--- NOTE | 2018-05-20 21:00 | NUR ---
PATIENT RETURNED FROM DIALYSIS. PATIENT RESTING COMFORTABLY IN BED. PATIENT RESUMES ON 2L NC. RESPIRATINS ARE EVEN AND UNLABORED. NO S/S OF DISTRESS. NO C/O PAIN. CALL LIGHT WITHIN REACH. WILL CPOC.
[2018-05-21 00:30] VITALS: BP 129/67
--- NOTE | 2018-05-21 02:06 | NUR ---
PATIENT RESTING COMFORTABLY IN BED. RESPIRATIONS ARE EVEN AND UNLABORED. NO S/S OF DISTRESS. NO C/O PAIN. CALL LIGHT WITHIN REACH. WILL CPOC.
[2018-05-21 04:00] VITALS: BP 140/65
[2018-05-21 07:02] LABS: ALBUMIN 1.8 g/dL (3.4-5.0); ANION GAP 16.2 mmol/L (8-16); BILIRUBIN - TOTAL 1.04 mg/dL (0.2-1.3); CALCIUM 8.5 mg/dL (8.5-10.1); CARBON DIOXIDE 25.4 mmol/L (21.0-32.0); CREATININE - SERUM 4.9 mg/dL (0.6-1.3); PROTEIN - SERUM 5.7 g/dL (6.4-8.2)
[2018-05-21 07:04] LABS: POTASSIUM - SERUM 3.6 mmol/L (3.5-5.1)
[2018-05-21 07:25] LABS: BASOPHILS 0.4 % (0-2); HEMATOCRIT 28.2 % (42.0-54.0); HEMOGLOBIN 8.9 g/dL (13.5-17.5); IMMATURE GRANULOCYTES 2.1 % (0-5); LYMPHOCYTES 5.9 % (15-50); MCH 24.5 pg (26.0-34.0); MCHC 31.6 g/dL (31.0-37.0); MCV 77.7 fL (80.0-100.0); MEAN PLATELET VOLUME 10.4 fL (7.4-10.4); MONOCYTES 11.5 % (2-11); NEUTROPHILS 78.1 % (40-80); RBC 3.63 10x6/uL (4.20-6.10); RDW 21.1 % (11.5-14.5)
[2018-05-21 07:27] LABS: HAPTOGLOBIN 75 mg/dL (34-200)
[2018-05-21 07:27] LABS: PLATELET COUNT 57 10x3/uL (130-400); WBC 9.9 10x3/uL (4.8-10.8)
[2018-05-21 08:58] LABS: PLATELET ESTIMATE DECREASED
--- NOTE | 2018-05-21 09:00 | NUR ---
AM ROUNDS COMPLETED. INTRODUCED MYSELF TO PT PRIMARY RN FOR TODAYS SHIFT. PT IS A&O SITTING UP IN BED RESTING QUIETLY. SHIFT ASSESSMENT COMPLETED. 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 STERILE CVL DRSG CHANGE COMPLETED AND DRSG IS NOW ADHERED TO SKIN WITH BIOPATCH INTACT. PT ALSO HAS A R.UPPER ARM PICC LINE WITH THE BIOPATCH UPSIDE DOWN ON IT AND DRSG SOILED. ALSO PERFORMED STERILE DRSG CHANGE TO IT WELL AND BIOPATCH IS NOW INTACT AND CORRECTLY USED, DRSG CDI. PT HAS A HARPER DRAINING TO GRAVITY OFF R.SIDE OF BED HE STATES R/T RETENTION, I WILL LOOK INTO THAT. PT HAS A DRSG TO R.FOOT CDI NO NEEDS AT THIS TIME. PT STATES HE IS FEELING WELL. CL IN REACH, BED IN LOWEST, SIDE RAILS X2. WILL CTM.
--- NOTE | 2018-05-21 10:22 | EC ---
PATIENT:MELISSA PETTY DATE OF SERVICE: 05/14/18 SEX: M MEDICAL RECORD: [id number] DATE OF : 40 LOCATION:D.M2 D.211 AGE OF PATIENT: 78 ADMISSION DATE: 05/14/18 REFERRING PHYSICIAN: INTERPRETING PHYSICIAN: LIZ BACA MD ECHOCARDIOGRAM REPORT ECHO CHARGES 4 ECHO COMPLETE Date: 05/15/18 CLINICAL DIAGNOSIS: LVF ECHOCARDIOGRAPHIC MEASUREMENTS (adult normal given) AC root (d.<3.7cm) 3.5 cm LV Septum d (<1.2 cm> 1.9 cm Valve Excursion 1.2 cm LV Septum (systole) 2.0 cm Left Atria (s.<4.0cm> 3.4 cm LVPW d(<1.2cm) 1.1 cm RV (d.<2.3cm) 3.4 cm LVPW (sytole) 1.2 cm LV diastole(<5.6CM) 4.8 cm MV E-F(>70mm/sec) cm LV systole 4.0 cm LVOT Diameter 1.9 cm MV exc.(>10mm) cm Est.ejection fraction (50-75%) % DOPPLER: LVIT cm/sec A 28 cm/sec E 67 cm/sec LA cm/sec RVSP 66.5 mmHg LVOT 153 cm/sec AOP1/2T m/s Asc. Ao 243 cm/sec RVOT 59 cm/sec RA cm/sec PA 77 cm/sec AV Gradient Peak 23.7 mmHg AV Mean 9.8 mmHg AV Area 2.0 cm MV Gradient Peak 3.8 mmHg MV Mean 1.4 mmHg MV Area cm COMMENTS: Data Control Clerk Supervisor: Viji ESPINO Bedspread Cutter Hand: Franko Cason TAPE# PACS Pericardial Effusion N DATE OF SERVICE: 05/17/2018 ECHOCARDIOGRAM DATE OF SERVICE: 05/17/2018 FINDINGS: 1. Left ventricular chamber size is within normal limits. Left ventricular systolic function is normal. Overall ejection fraction estimated at 55%. 2. Left atrium is enlarged at 4.4 cm. Right atrium and right ventricle chamber ECHOCARDIOGRAM REPORT [id number] MELISSA PETTY sizes are mildly dilated. 3. Valvular structures. The aortic valve demonstrates mild calcific aortic stenosis. The valve area calculates to 1.6 cm-squared and there is a gradient of 20-mm across the valve. The remaining valvular structures have normal structure and motion. 4. Doppler interrogation only reveals trace tricuspid regurgitation, no other valvular insufficiency or stenosis and pulmonary systolic pressure is estimated at 28 mmHg. 5. No evidence of pericardial effusion or left ventricular thrombus. TRANSINT:[id number] Voice Confirmation ID: [id number] DOCUMENT ID: [id number] LIZ BACA MD at 1022 CC: [id number] DICTATION DATE: 05/17/18 1103 CLAY MOLDER: 05/17/18 1155 ADM IN [facility] [address] [id number]
--- NOTE | 2018-05-21 12:00 | NUR ---
FSBS 293 PROVIDED PT WITH 6 UNITS OF INSULIN PER SS. ASSISTED PT UP IN BED TO BE ABLE TO EAT SAFELY. SPEECH CAME BY AND PT IS DOING WELL AND DIET IS BEING ADVANCED TO MECHANICAL SOFT PT IS VERY EXCITED ABOUT THIS. AT BEDSIDE AND ASSISTING PT WITH LUNCH. CL IN REACH, BED IN LOWEST, SIDE RAILS X2. WILL CPCO.
[2018-05-21 12:19] LABS: ANION GAP 23.3 mmol/L (8-16); CALCIUM 8.6 mg/dL (8.5-10.1); CARBON DIOXIDE 20.7 mmol/L (21.0-32.0); CREATININE - SERUM 5.4 mg/dL (0.6-1.3)
--- NOTE | 2018-05-21 12:23 | NUR ---
PT ATE 100% OF HIS NEW DIET AND VOICED THANKS AND DENIED ANY DIFFICULTIES SWALLOWING IT. WEANED PTS O2 DOWN TO 2.5L HIFLOW NC HE IS DOING VERY WELL WITH PULSE OX OF 99% WILL CONTINUE TO TAPER ABLE. PT VOICED THANKS AND IS RESTING QUIETLY WITH AT BEDSIDE. CL IN REACH. WILL CTM.
[2018-05-21 13:02] VITALS: BP 126/59
[2018-05-21 14:15] LABS: ANCA - ANTIMYELOPEROXIDASE <9.0 U/mL (0.0-9.0); ANCA - ANTIPROTEINASE 3 <3.5 U/mL (0.0-3.5); ANCA - ATYPICAL <1:20 titer (Neg:<1:20); ANCA - CYTOPLASMIC <1:20 titer (Neg:<1:20); ANCA - PERINUCLEAR <1:20 titer (Neg:<1:20)
[2018-05-21 16:31] VITALS: BP 134/49
--- NOTE | 2018-05-21 16:33 | NUR ---
FSBS 494 PROVIDED PT WITH INSULIN PER SS. PT WILL MOST LIKELY NEED HIGHER RESISTANCE SS. ON FLOOR AND I WILL DISCUSS WITH HIM PT NORMALLY HAS HIS INSULIN PUMP ON AND IS ABLE TO DO IT THROUGH THERE. PT SITTING UP IN BED RESTING QUIETLY WITH FAMILY AT BEDSIDE. CL IN REACH. WILL CTM.
--- NOTE | 2018-05-21 17:00 | NUR ---
AT BEDSIDE ROUNDING. PT DOING VERY WELL WITH THE TAPERING OF HIS OXYGEN WILL CONTINUE TO TAPER. PT NOW ON 1L NC AND RR NONLABORED. UPON DOING RESEARCH ON THEY REASON MEREDITH WAS IN NOTED THAT IT WAS PLACED FOR STRICT I&O PT NO LONGER MEETS THAT CRITERIA BEING ON THE FLOOR. EXPLAINED TO FAMILY AND PT WHY ITS NOT NEEDED AND I D/C IT PER NURSE DRIVEN PROTOCOL WITH CATHETER TIP FULLY INTACT. WILL MONITER FOR ANY POST REMOVAL RETENTION, PROVIDED PT WITH URINAL AT BEDSIDE. CL IN REACH, BED IN LOWEST, SIDE RAILS X2 AND FAMILY AT BEDSIDE. WILL CTM.
--- NOTE | 2018-05-21 18:31 | NUR ---
DID NOT COLLECT STOOL PT HAD ALREADY WENT AND FORGOT TO ALLOW US TO COLLECT. TOPHAT IN TOILET AND PT KNOWS TO LET US GET IT NEXT TIME.
--- NOTE | 2018-05-21 19:25 | NUR ---
PT SITTING UP IN BED ALERT AND ORIENTED RECIEVING BREATHING TREATMENT. PT DENIES ANY NEEDS OR PAIN AT THIS TIME. BED LOW CALL LIGHT WITHIN REACH. WILL CONTINUE TO MONITOR.
[2018-05-21 20:00] VITALS: BP 149/62
--- NOTE | 2018-05-21 21:12 | NUR ---
FINGER STICK BLOOD SUGAR 481. LUIS BLACK NOTIFIED. PT ASYMPTOMATIC WITHOUT COMPLAINT. PT RESTING COMFORTABLY IN BED RESPIRATIONS EVEN AND UNLABORED. BED LOW CALL LIGHT WITHIN REACH. WILL CONTINUE TO MONITOR.
[2018-05-22 00:04] VITALS: BP 128/47
--- NOTE | 2018-05-22 02:30 | NUR ---
KENNEY PURI'S CHEST TUBE CONTAINER. 600ML OUTPUT. BED LOW CALL LIGHT WITHIN REACH WILL CONTINUE TO MONITOR.
--- NOTE | 2018-05-22 02:56 | NUR ---
PT COMPLAINS THAT BLOOD SUGAR FEELS LOW. FSBS-47. GAVE PT TUBE OF INSTA GLUC AND PEANUT BUTTER AND CRACKERS. BED LOW CALL LIGHT WITHIN REACH. WILL CONTINUE TO MONITOR.
--- NOTE | 2018-05-22 03:30 | NUR ---
AMP OF D5O GIVENT TO PT.WILL CONTINUE TO MONITOR. BED LOW CALL LIGHT WITHIN REACH.WILL CONTINUE TO MONITOR.
[2018-05-22 03:52] LABS: BASOPHILS 0.4 % (0-2); EOSINOPHILS 2.1 % (0-7); HEMATOCRIT 25.8 % (42.0-54.0); HEMOGLOBIN 8.3 g/dL (13.5-17.5); IMMATURE GRANULOCYTES 2.5 % (0-5); LYMPHOCYTES 5.5 % (15-50); MCH 24.9 pg (26.0-34.0); MCHC 32.2 g/dL (31.0-37.0); MCV 77.2 fL (80.0-100.0); MONOCYTES 19.2 % (2-11); NEUTROPHILS 70.3 % (40-80); PLATELET COUNT 68 10x3/uL (130-400); RBC 3.34 10x6/uL (4.20-6.10); WBC 10.6 10x3/uL (4.8-10.8)
[2018-05-22 04:00] VITALS: BP 127/50
[2018-05-22 04:07] LABS: ALBUMIN 1.9 g/dL (3.4-5.0); ANION GAP 18.4 mmol/L (8-16); BILIRUBIN - TOTAL 0.87 mg/dL (0.2-1.3); CALCIUM 8.3 mg/dL (8.5-10.1); PROTEIN - SERUM 5.7 g/dL (6.4-8.2)
[2018-05-22 04:10] LABS: POTASSIUM - SERUM 3.4 mmol/L (3.5-5.1)
--- NOTE | 2018-05-22 04:15 | NUR ---
RN NOTE: PATIENT IS ALERT AND ORIENTED. RESTIN COMFORTABLY. NO S/S OF DISTRESS. NO C/O PAIN. CALL LIGHT WITHIN REACH. WILL CPOC.
--- NOTE | 2018-05-22 06:09 | NUR ---
PT RESTING IN BED. RESPIRATIONS EVEN AND SHALLOW. PT VITALS STABLE FSBS-154. BED LOW CALL LIGHT WITHIN REACH. WILL CONTINUE TO MONITOR.
--- NOTE | 2018-05-22 06:21 | NUR ---
ALIRIO BLACK APN REGARDING PT'S FSBS. ORDERS GIVEN FOR LOW RESISTANCE SCALE.
--- NOTE | 2018-05-22 07:45 | NUR ---
AM ROUNDS COMPLETED. INTRODUCED MYSELF TO PT PRIMARY RN FOR TODAYS SHIFT. FOCUSED SHIFT ASSESSMENT COMPLETED. PT IS RESTING QUIETLY IN BED WITH EYES CLOSED RR NONLABORED. NO S/S OF DISTRESS OR ANY CURRENT NEEDS AT THIS TIME. CL IN REACH, BED IN LOWEST, SIDE RAILS X2. WILL CTM.
[2018-05-22 08:08] VITALS: BP 131/58
[2018-05-22 08:45] LABS: INR 1.44 (0.85-1.17); PROTIME 16.9 SECONDS (11.6-15.0)
[2018-05-22 08:46] LABS: APTT 43.7 SECONDS (22.8-39.4)
--- NOTE | 2018-05-22 09:27 | NUR ---
Dialysis Coordinator: Met with pt bedside in acutes on 05/20/18. Obtained JUAN[facility] for [facility]. Referral forwarded to the [facility] clinic for review. Awaiting response and chair time from the clinic. Will update when response received from the clinic. BRITTANI BORJAS.
--- NOTE | 2018-05-22 10:15 | NUR ---
DIALYSIS CALLED FOR PT. PT GOING DOWN VIA CHAIR. NO CURRENT NEEDS. WILL CTM.
--- NOTE | 2018-05-22 14:39 | NUR ---
PT BACK FROM DIALYSIS AWAKE A&O SITTING UP IN BEDSIDE CHAIR. HEATED UP PTS LUNCH REQUESTED AND HE IS NOW EATING. NO CURRENT NEEDS. WILL CTM.
[2018-05-22 15:55] LABS: ANION GAP 23.8 mmol/L (8-16); CALCIUM 8.1 mg/dL (8.5-10.1); CARBON DIOXIDE 19.7 mmol/L (21.0-32.0); CREATININE - SERUM 4.6 mg/dL (0.6-1.3)
[2018-05-22 16:01] LABS: POTASSIUM - SERUM 4.5 mmol/L (3.5-5.1)
[2018-05-22 16:12] LABS: ADAMTS13 ACTIVITY 44.2 % (>66.8)
--- NOTE | 2018-05-22 16:18 | NUR ---
LAB CALLED CRITICAL GLUCOSE OF 503. PROVIDED PT WITH 12UNITS PER SS. PT DENIES ANY INDIFFERENT FEELINGS AND IS RESTING QUIETLY IN BED. TURNED HIS OXYGEN OFF TO SEE HOW HE CAN DO ON RA. NO CURRENT NEEDS. WILL CTM.
[2018-05-22 16:39] VITALS: BP 119/34
--- NOTE | 2018-05-22 17:30 | NUR ---
STERILE DRSG CHANGE DONE TO R.UPPER ARM PICC LINE PER QWEDNESDAY POLICY. BIOPATCH INTACT, DRSG ADHERED TO SKIN AND SWAB CAPS IN USE, DATED AND INITIALED. PT SITTING UP IN BED EATING DINNER, AT BEDSIDE. NO CURRENT NEEDS. WILL CTM.
--- NOTE | 2018-05-22 17:46 | NUR ---
SPUTUM SPECIMEN NOT COLLECTED PT HAS NOT BEEN ABLE TO PROVIDE. WILL COLLECT IF AND WHEN HE IS ABLE.
[2018-05-22 20:00] VITALS: BP 127/61
--- NOTE | 2018-05-22 21:16 | NUR ---
PT FSBS 533. PT ASYMPTOMATIC. LUIS BLACK NOTIFIED. PT RECIEVED 12 UNITS OF HUMULIN R. BED LOW SIDE RAILS X2. CALL LIGHT WITHIN REACH. WILL CONTINUE TO MONITOR.
--- NOTE | 2018-05-22 21:49 | NUR ---
PT HAS NOSE BLEED IN RIGHT NOSTRIL. PRESSURE APPLIED. NOSE BLEED HAS STOPPED. WILL CONTINUE TO MONITOR.
[2018-05-23] VITALS: BP 118/48
--- NOTE | 2018-05-23 00:54 | NUR ---
PT UP ALERT AND ORIENTED ON 2L NC O2-94%. ASSISTED PT TO RECLINER CHAIR. PT HAS FEET UP AND STATES IS VERY COMFORTABLE. PT COMPLAINS OF PAIN 10/07 AND REQUESTED HYDROCODONE THAT PT TAKES AT HOME AND ISN'T ON JUN. PT CALL LIGHT WITHIN REACH. DOOR OPEN. PT INSTRUCTED TO CALL FOR ASSISTANCE. WILL CONTINUE TO MONITOR.
[2018-05-23 04:00] VITALS: BP 101/45
[2018-05-23 07:00] LABS: ANION GAP 18.4 mmol/L (8-16); BILIRUBIN - TOTAL 1.06 mg/dL (0.2-1.3); CALCIUM 8.1 mg/dL (8.5-10.1); CARBON DIOXIDE 23.1 mmol/L (21.0-32.0); CREATININE - SERUM 5.3 mg/dL (0.6-1.3); POTASSIUM - SERUM 3.5 mmol/L (3.5-5.1); PROTEIN - SERUM 5.5 g/dL (6.4-8.2)
[2018-05-23 07:57] VITALS: BP 122/42
[2018-05-23 08:26] LABS: BASOPHILS 0.1 % (0-2); EOSINOPHILS 1.6 % (0-7); HEMATOCRIT 27.7 % (42.0-54.0); HEMOGLOBIN 8.9 g/dL (13.5-17.5); IMMATURE GRANULOCYTES 1.9 % (0-5); LYMPHOCYTES 5.7 % (15-50); MCH 25.1 pg (26.0-34.0); MCHC 32.1 g/dL (31.0-37.0); MONOCYTES 20.9 % (2-11); NEUTROPHILS 69.8 % (40-80); PLATELET COUNT 64 10x3/uL (130-400); RBC 3.55 10x6/uL (4.20-6.10); RDW 22.8 % (11.5-14.5)
[2018-05-23 08:27] LABS: WBC 7.4 10x3/uL (4.8-10.8)
[2018-05-23 08:30] LABS: PLATELET ESTIMATE DECREASED; PLATELET MORPHOLOGY NORMAL PLT MORPH
--- NOTE | 2018-05-23 09:51 | NUR ---
UP TO BR. AT BS. WILL CONT. PLAN OF CARE.
[2018-05-23 11:21] LABS: ANION GAP 18.4 mmol/L (8-16); CALCIUM 8.8 mg/dL (8.5-10.1); CARBON DIOXIDE 23.1 mmol/L (21.0-32.0); CREATININE - SERUM 5.7 mg/dL (0.6-1.3); POTASSIUM - SERUM 3.5 mmol/L (3.5-5.1)
[2018-05-23 11:52] VITALS: BP 123/41
[2018-05-23 15:31] VITALS: BP 124/60
--- NOTE | 2018-05-23 15:36 | MORECARE ---
CASE MANAGEMENT DISCHARGE SUMMARY PATIENT: MELISSA PETTY UNIT: [id number] ADM DATE: 05/14/18 AGE: 78 : 40 SEX: M ROOM/BED: D.2110 AUTHOR: HELIO,DOC PHYSICIAN: REFERRING PHYSICIAN: PHILLIP BARAHONA MD DATE OF SERVICE: 05/23/18 Discharge Plan Patient Name: MELISSA PETTY Facility: [facility]:[place] : 1940 Planned Disposition: Inpatient Rehab Anticipated Discharge Date: 05/23/18 Discharge Date: Expected LOS: 9 Initial Reviewer: [email or web address] Initial Review Date: 05/14/2018 Generated: 05/23/18 4:36 pm Comments DCP- Discharge Planning Updated by [id number]: Margarito Markham on 05/23/18 2:[address] Patient Name: MELISSA PETTY Encounter No: [id number] : 1940 Primary Insurance: MEDICARE A & B Anticipated DC Date: 05-23-2018 Planned Disposition: Inpatient Rehab External Planned Provider: [facility] DCP follow-up note: CM RECEIVED ORDER FOR INPATIENT REHAB PRESCREENING, SPOKE TO DU OF INPATIENT REHAB, [facility] INPAT[facility] WILL SCREEN FOR NPATIENT REHAB. CM SPOKE TO PT AND SPOUSE IN ROOM. MELISSA PETTY provided verbal consent to discuss current and ongoing needs with/in the presence of: SPOUSE, BERENICE. CM DISCUSSED ORDER, REHAB AVAILABILITY, LOCATIONS AND PROVIDERS. PT AND SPOUSE WOULD LIKE TO BE CONSIDERED FOR INPATIENT REHAB, PT STATES HE IS STILL WEAK AND HAVING BALANCE ISSUES. 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 IMPORTANT MESSAGE FROM MEDICARE PROVIDED AND EXPLAINED. CM WAITING INPATIENT PRESCREENING AND ADMISSION DETERMINATION FROM [facility] IN[facility]. Margarito Markham, RONALD COLE DCP- Discharge Planning Updated by [id number]: Hoda Martinez on 05/16/18 1:[address] CM spoke with Cheri from [facility] [phone]. She stated they was actively seeing patient and would resume care upon discharge. Just to notify them upon discharge. CM will continue to follow and assist as needed with discharge planning / needs. DCP- Discharge Planning Updated by [email or web address]: Zenobia Laureano on 05/14/18 6:[address] Patient Name: MELISSA PETTY Admission Status: ER Accout number: [id number] Admission Date: 05-14-2018 : 1940 Admission Diagnosis: Attending: PHILLIP BARAHONA Current LOS: 1 Anticipated DC Date: 05-17-2018 Planned Disposition: Primary Insurance: MEDICARE A & B Discharge Planning Comments: CM met with patient and his to complete initial dc planning assessment. CM educated patient's on the CM role and verbal consent given by patient's to complete assessment. Patient lives at home with his and is normally independent in his care. He has been on IV antibiotics for a 6 week regimen for a foot wound. He has [facility] and is seen by the [facility] at [place]. At discharge patient's plans to take him home with resumption of home health. Confusion is new onset for the patient and this is the second time in the past week he has gotten confused. Patient denied known discharge needs at this time. CM will continue to follow and will assist as needed with dc plans/needs. Search Marketing Specialist: Zenobia Laureano RN, [facility] DCPIA - Discharge Planning Initial Assessment Updated by [id number]: Zenobia Laureano on 05/14/18 7:06 pm * Is the patient Alert and Oriented? Yes * How many steps to enter\exit or inside your home? None * PCP Dr. Baldwin in [place] * Pharmacy [facility] in [place] * Preadmission Environment Home with Family * ADLs Independent * Equipment Cane Glucometer Rolling Walker * Other Equipment Insulin pump * List name and contact numbers for known caregivers / representatives who currently or will assist patient after discharge: Berenice Petty - - [phone] * Verbal permission to speak to the caregivers and representatives has been obtained from the patient. Yes * Community resources currently utilized Home Health * Please name any agencies selected above. [facility] - has a picc line he is on 6 weeks IV therapy for foot wound. He goes to the wound clinic in [place] under Dr. Diego. Last scheduled dose of IV antibiotic is tentatively set for 05/20/18. * Additional services required to return to the preadmission environment? Yes * Can the patient safely return to the preadmission environment? No * Has this patient been hospitalized within the prior 30 days at any hospital? Yes Coverage Notice Reviewer: [id number] Nelson Markham Notice Issued Date-Time: 05/23/2018 15:20 Notice Type: IM Discharge Notice Notice Delivered To: Patient Relationship to Patient: Bee Farmer Name: Delivery Method: HAND - Hand Delivered Kathleen Days: Prior Verbal Notification: Recipient Understood Notice: Yes Recipient Signature: Yes Med Rec Note Co-signed by Attending: Coverage Notice Comment: Last DP export: 05/16/18 1:19 p Patient Name: MELISSA PETTY Page [id number] at 1536 All edits/amendments must be made on the electronic document DICTATION DATE: 05/23/181535 PAPERBOARD MACHINE OPERATOR: AILYN 05/23/18 153 RPT#: [id number] DC DATE: STATUS: ADM IN [facility] [address] [place] [address] END OF REPORT
--- NOTE | 2018-05-23 19:45 | NUR ---
RESUMING PT CARE. PT IS ALERT LAYING IN BED WITH NO C/O VOICED AT THIS TIME. RESPIRATIONS EVEN AND UNLABORED. BED IN THE LOW POSITION WITH CALL LIGHT IN REACH. SIDE RAILS UP X 2. WILL CONTINUE TO MONITOR PT AND FOLLOW PLAN OF CARE.
[2018-05-23 20:00] VITALS: BP 130/59
--- NOTE | 2018-05-24 02:54 | NUR ---
LYING IN BED, CALL LIGHT IN REACH. WILL CONTINUE WITH PLAN OF CARE.
--- NOTE | 2018-05-24 04:28 | NUR ---
PT IS LAYING IN THE BED WITH EYES CLOSED RESTING COMFORTABLY. RESPIRATIONS ARE EVEN AND UNLABORED. BED IN THE LOW POSITION WITH CALL LIGHT IN REACH. SIDE RAIL UP X 2. WILL CONTINUE TO MONITOR PT AND FOLLOW PLAN OF CARE.
--- NOTE | 2018-05-24 07:30 | NUR ---
RECEIVED SITTING UP IN CHAIR AT BEDSIDE. A/A/OX4. NO REQUESTS AT THIS TIME AND DENIES ANY PAIN MED NEEDED. TRIALYSIS CATH IN PLACE AND DRESSING C/D/I. DRESSING TO RIGHT FOOT C/D/I. BED IN LOWEST POSITION, SIDERAILS UP X 2 AND CALL LIGHT IN REACH. ASSESSMENT COMPLETED. WILL CPOC
[2018-05-24 07:51] LABS: ANION GAP 19.8 mmol/L (8-16); BILIRUBIN - TOTAL 1.08 mg/dL (0.2-1.3); CALCIUM 8.4 mg/dL (8.5-10.1); CARBON DIOXIDE 22.7 mmol/L (21.0-32.0); POTASSIUM - SERUM 3.5 mmol/L (3.5-5.1); PROTEIN - SERUM 5.7 g/dL (6.4-8.2)
[2018-05-24 08:10] LABS: BASOPHILS 0.2 % (0-2); EOSINOPHILS 3.1 % (0-7); HEMOGLOBIN 9.3 g/dL (13.5-17.5); IMMATURE GRANULOCYTES 0.9 % (0-5); LYMPHOCYTES 9.6 % (15-50); MCH 25.3 pg (26.0-34.0); MCHC 32.1 g/dL (31.0-37.0); MCV 78.8 fL (80.0-100.0); MEAN PLATELET VOLUME 10.4 fL (7.4-10.4); MONOCYTES 8.7 % (2-11); NEUTROPHILS 77.5 % (40-80); PLATELET COUNT 74 10x3/uL (130-400); RBC 3.68 10x6/uL (4.20-6.10); RDW 23.7 % (11.5-14.5)
[2018-05-24 08:34] LABS: WBC 9.6 10x3/uL (4.8-10.8)
[2018-05-24 09:03] LABS: PLATELET ESTIMATE DECREASED
--- NOTE | 2018-05-24 09:36 | NUR ---
LEAVING FOR DIALYSIS BY [facility]. WILL CONT. PLAN OF CARE.
--- NOTE | 2018-05-24 10:46 | NUR ---
Rehab Prescreening Consult recieved and the chart has been revieved. He is a good ARU candidate when medically stable. He has a surgery consult for a hemosplit that was ordered today. Rehab will continue to follow and plan to accept when his medical workup is complete, and he can participate in the required 3 hrs of therapy a day 5 days a week. Discussed with the CM Chidi Markham. Destinee Chaves RN Clinical Liaison, Rehab
--- NOTE | 2018-05-24 11:46 | MORECARE ---
CASE MANAGEMENT DISCHARGE SUMMARY PATIENT: MELISSA PETTY UNIT: [id number] ADM DATE: 05/14/18 AGE: 78 : 40 SEX: M ROOM/BED: D.2110 AUTHOR: HELIO,DOC PHYSICIAN: REFERRING PHYSICIAN: PHILLIP BARAHONA MD DATE OF SERVICE: 05/24/18 Discharge Plan Patient Name: MELISSA PETTY Facility: [facility]:[place] : 1940 Planned Disposition: Inpatient Rehab Anticipated Discharge Date: 05/23/18 Discharge Date: Expected LOS: 9 Initial Reviewer: [email or web address] Initial Review Date: 05/14/2018 Generated: 05/24/18 12:46 pm Comments DCP- Discharge Planning Updated by [email or web address]: Margarito Markham on 05/23/18 2:[address] Patient Name: MELISSA PETTY Encounter No: [id number] : 1940 Primary Insurance: MEDICARE A & B Anticipated DC Date: 05-23-2018 Planned Disposition: Inpatient Rehab External Planned Provider: [facility] INPAT[facility] DCP follow-up note: CM RECEIVED ORDER FOR INPATIENT REHAB PRESCREENING, SPOKE TO DU OF INPATIENT REHAB, [facility] INPATIENT [facility] WILL SCREEN FOR NPATIENT REHAB. CM SPOKE TO PT AND SPOUSE IN ROOM. MELISSA PETTY provided verbal consent to discuss current and ongoing needs with/in the presence of: SPOUSE, BERENICE. CM DISCUSSED ORDER, REHAB AVAILABILITY, LOCATIONS AND PROVIDERS. PT AND SPOUSE WOULD LIKE TO BE CONSIDERED FOR INPATIENT REHAB, PT STATES HE IS STILL WEAK AND HAVING BALANCE ISSUES. 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 IMPORTANT MESSAGE FROM MEDICARE PROVIDED AND EXPLAINED. CM WAITING INPATIENT PRESCREENING AND ADMISSION DETERMINATION FROM [facility]. Margarito Markham, RONALD COLE DCP- Discharge Planning Updated by [id number]: Hoda Martinez on 05/16/18 1:[address] CM spoke with Cheri from [facility] [phone]. She stated they was actively seeing patient and would resume care upon discharge. Just to notify them upon discharge. CM will continue to follow and assist as needed with discharge planning / needs. DCP- Discharge Planning Updated by [id number]: Zenobia Laureano on 05/14/18 6:[address] Patient Name: MELISSA PETTY Admission Status: ER Accout number: [id number] Admission Date: 05-14-2018 : 1940 Admission Diagnosis: Attending: PHILLIP BARAHONA Current LOS: 1 Anticipated DC Date: 05-17-2018 Planned Disposition: Primary Insurance: MEDICARE A & B Discharge Planning Comments: CM met with patient and his to complete initial dc planning assessment. CM educated patient's on the CM role and verbal consent given by patient's to complete assessment. Patient lives at home with his and is normally independent in his care. He has been on IV antibiotics for a 6 week regimen for a foot wound. He has [facility] and is seen by the Wound Clinic at [place]. At discharge patient's plans to take him home with resumption of home health. Confusion is new onset for the patient and this is the second time in the past week he has gotten confused. Patient denied known discharge needs at this time. CM will continue to follow and will assist as needed with dc plans/needs. Russet Repairer: Zenobia Laureano RN, [facility] DCPIA - Discharge Planning Initial Assessment Updated by [id number]: Zenobia Laureano on 05/14/18 7:06 pm * Is the patient Alert and Oriented? Yes * How many steps to enter\exit or inside your home? None * PCP Dr. Baldwin in [place] * Pharmacy [facility] in [place] * Preadmission Environment Home with Family * ADLs Independent * Equipment Cane Glucometer Rolling Walker * Other Equipment Insulin pump * List name and contact numbers for known caregivers / representatives who currently or will assist patient after discharge: Berenice Petty - - [phone] * Verbal permission to speak to the caregivers and representatives has been obtained from the patient. Yes * Community resources currently utilized Home Health * Please name any agencies selected above. [facility] - has a picc line he is on 6 weeks IV therapy for foot wound. He goes to the wound clinic in [place] under Dr. Diego. Last scheduled dose of IV antibiotic is tentatively set for 05/20/18. * Additional services required to return to the preadmission environment? Yes * Can the patient safely return to the preadmission environment? No * Has this patient been hospitalized within the prior 30 days at any hospital? Yes Coverage Notice Reviewer: [email or web address] Nelson Markham Notice Issued Date-Time: 05/23/2018 15:20 Notice Type: IM Discharge Notice Notice Delivered To: Patient Relationship to Patient: Commercial Accountant Name: Delivery Method: HAND - Hand Delivered Kathleen Days: Prior Verbal Notification: Recipient Understood Notice: Yes Recipient Signature: Yes Med Rec Note Co-signed by Attending: Coverage Notice Comment: Last DP export: 05/23/18 2:36 p Patient Name: MELISSA PETTY Page [id number] at 1146 All edits/amendments must be made on the electronic document DICTATION DATE: 05/24/186 ROPE MAKER: AILYN 05/24/18 1146 RPT#: [id number] DC DATE: STATUS: ADM IN [facility] [address] [place] [address] END OF REPORT
--- NOTE | 2018-05-24 12:02 | MORECARE ---
CASE MANAGEMENT DISCHARGE SUMMARY PATIENT: MELISSA PETTY UNIT: [id number] ADM DATE: 05/14/18 AGE: 78 : 40 SEX: M ROOM/BED: D.2110 AUTHOR: MANUEL CADET PHYSICIAN: REFERRING PHYSICIAN: PHILLIP BARAHONA MD DATE OF SERVICE: 05/24/18 Discharge Plan Patient Name: MELISSA PETTY Facility: [facility]:[place] : 1940 Planned Disposition: Inpatient Rehab Anticipated Discharge Date: 05/23/18 Discharge Date: Expected LOS: 9 Initial Reviewer: [email or web address] Initial Review Date: 05/14/2018 Generated: 05/24/18 1:01 pm Comments DCP- Discharge Planning Updated by [email or web address]: Margarito Markham on 05/24/18 10:[address] Patient Name: MELISSA PETTY Encounter No: [id number] : 1940 Primary Insurance: MEDICARE A & B Anticipated DC Date: 05-23-2018 Planned Disposition: Inpatient Rehab External Planned Provider: [facility]PAT[facility] DCP follow-up note: CM SPOKE TO DU OF INPATIENT REHAB, THEY PLAN TO ACCEPT PT ONCE SURGERY CONSULT FOR HEMOSPLIT HAS BEEN COMPLETED. PT'S SPOUSE NOTIFIED IN ROOM, IN AGREEMENT WITH PT'S DISCHARGE TO INPATIENT REHAB. NOTIFY [facility] IN[facility] WHEN PT IS READY TO DISCHARGE TO REHAB AFTER HEMOSPLIT IS DONE. RONALD Bobby DCP- Discharge Planning Updated by [id number]: Margarito Markham on 05/23/18 2:[address] Patient Name: MELISSA PETTY Encounter No: [id number] : 1940 Primary Insurance: MEDICARE A & B Anticipated DC Date: 05-23-2018 Planned Disposition: Inpatient Rehab External Planned Provider: [facility] DCP follow-up note: CM RECEIVED ORDER FOR INPATIENT REHAB PRESCREENING, SPOKE TO DU OF INPATIENT REHAB, [facility] INPAT[facility] WILL SCREEN FOR NPATIENT REHAB. CM SPOKE TO PT AND SPOUSE IN ROOM. MELISSA PETTY provided verbal consent to discuss current and ongoing needs with/in the presence of: SPOUSEBERENICE. CM DISCUSSED ORDER, REHAB AVAILABILITY, LOCATIONS AND PROVIDERS. PT AND SPOUSE WOULD LIKE TO BE CONSIDERED FOR INPATIENT REHAB, PT STATES HE IS STILL WEAK AND HAVING BALANCE ISSUES. 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 IMPORTANT MESSAGE FROM MEDICARE PROVIDED AND EXPLAINED. CM WAITING INPATIENT PRESCREENING AND ADMISSION DETERMINATION FROM [facility]. Margarito Markham, CASE MANAGEMENT DCP- Discharge Planning Updated by [email or web address]: Hoda Martinez on 05/16/18 1:[address] CM spoke with Cheri from [facility] [phone]. She stated they was actively seeing patient and would resume care upon discharge. Just to notify them upon discharge. CM will continue to follow and assist as needed with discharge planning / needs. DCP- Discharge Planning Updated by [email or web address]: Zenobia Laureano on 05/14/18 6:[address] Patient Name: MELISSA PETTY Admission Status: ER Accout number: [id number] Admission Date: 05-14-2018 : 1940 Admission Diagnosis: Attending: PHILLIP BARAHONA Current LOS: 1 Anticipated DC Date: 05-17-2018 Planned Disposition: Primary Insurance: MEDICARE A & B Discharge Planning Comments: CM met with patient and his to complete initial dc planning assessment. CM educated patient's on the CM role and verbal consent given by patient's to complete assessment. Patient lives at home with his and is normally independent in his care. He has been on IV antibiotics for a 6 week regimen for a foot wound. He has [facility] and is seen by the [facility] at [place]. At discharge patient's plans to take him home with resumption of home health. Confusion is new onset for the patient and this is the second time in the past week he has gotten confused. Patient denied known discharge needs at this time. CM will continue to follow and will assist as needed with dc plans/needs. Butt Presser: Zenobia Laureano RN, [facility] DCPIA - Discharge Planning Initial Assessment Updated by [id number]: Zenobia Laureano on 05/14/18 7:06 pm * Is the patient Alert and Oriented? Yes * How many steps to enter\exit or inside your home? None * PCP Dr. Baldwin in [place] * [facility] in [place] * Preadmission Environment Home with Family * ADLs Independent * Equipment Cane Glucometer Rolling Walker * Other Equipment Insulin pump * List name and contact numbers for known caregivers / representatives who currently or will assist patient after discharge: Berenice Petty - - [phone] * Verbal permission to speak to the caregivers and representatives has been obtained from the patient. Yes * Community resources currently utilized Home Health * Please name any agencies selected above. [facility] - has a picc line he is on 6 weeks IV therapy for foot wound. He goes to the wound clinic in [place] under Dr. Diego. Last scheduled dose of IV antibiotic is tentatively set for 05/20/18. * Additional services required to return to the preadmission environment? Yes * Can the patient safely return to the preadmission environment? No * Has this patient been hospitalized within the prior 30 days at any hospital? Yes Coverage Notice Reviewer: [email or web address] Nelson Markham Notice Issued Date-Time: 05/23/2018 15:20 Notice Type: IM Discharge Notice Notice Delivered To: Patient Relationship to Patient: Public Relations Senior Associate Name: Delivery Method: HAND - Hand Delivered Kathleen Days: Prior Verbal Notification: Recipient Understood Notice: Yes Recipient Signature: Yes Med Rec Note Co-signed by Attending: Coverage Notice Comment: Last DP export: 05/24/18 10:46 a Patient Name: MELISSA PETTY Page 39000 at 1202 All edits/amendments must be made on the electronic document DICTATION DATE: 05/24/18 1201 WET WASH ASSEMBLER: AILYN 05/24/18 1201 RPT#: [id number] DC DATE: STATUS: ADM IN [facility] [address] [place] [address] END OF REPORT
--- NOTE | 2018-05-24 12:26 | NUR ---
Nutrition follow-up: Diet: ADA mechanical soft with nectar thick liquids PO intake ~75% average of meals; improved labs reviewed +BM Wt: 180# Surgery Sunday RDN following.
[2018-05-24 12:34] LABS: ANION GAP 19.9 mmol/L (8-16); CALCIUM 7.9 mg/dL (8.5-10.1); POTASSIUM - SERUM 3.9 mmol/L (3.5-5.1)
[2018-05-24 12:36] LABS: CREATININE - SERUM 4.3 mg/dL (0.6-1.3)
--- NOTE | 2018-05-24 14:09 | NUR ---
BOTH LUMENS OF PICC LINE WILL NOT FLUSH. NOTIFIED SOFIA PAK AND ORDER RECEIVED TO DC THE PICC LINE IF IV ACCESS IS ESTABLISHED IN ANOTHER SIGHT. IV STARTED IN RIGHT AC WITH 20 GAUGE X 1 ATTEMPT AND FLUSHES WELL. PT TOLERATED WELL.
[2018-05-24 14:37] VITALS: BP 95/34
--- NOTE | 2018-05-24 14:43 | NUR ---
RIGHT LATERAL FOOT WOUND MEASURING 2CM X 2.5CM X 0.7CM. SANTYL OINTMENT IS BEING APPLIED TO REMOVE THE NECROTIC TISSUE. RECOMMEND CONTINUING THIS TREATMENT DAILY.
--- NOTE | 2018-05-24 16:57 | NUR ---
ORDER RECEIVED FOR PICC LINE TO BE DC DUE TO LINES BEING BLOCKED. PT NOW HAS TRIALYSIS CATH INR NECK. PROCEDURE EXPLAINED TO PT AND FAMILY BOTH UNDERSTAND. HANDS WASHED AND GLOVES DONNED. SITE OF LINE IS R AC. DRESSING REMOVED AND NO SIGNS OF INFECTION NOTED. AREA CLEANED WITH CHLORPREP. PT INSTRUCTED TO DEEP BREATHE AND BEAR DOWN. CATH REMOVED AT 1 INCH INCREMENTS AT A TIME. CATH INTACT AND TIP INTACT AT LENGTH OF 40 CMS. PRESSURE HELD FOR 5 MINS. THEN 2X2S APPLIED AND TEGADERM. PT ARCADIO WELL.
--- NOTE | 2018-05-24 19:33 | NUR ---
RESUMING PT CARE. PT IS ALERT SITTING IN CHAIR WATCHING TV WITH NO C/O VOICED AT THIS TIME. CALL LIGHT IS IN REACH. WILL CONTINUE TO MONITOR PT AND FOLLOW PLAN OF CARE.
[2018-05-24 20:31] VITALS: BP 111/90
[2018-05-24 23:50] VITALS: BP 107/48
--- NOTE | 2018-05-25 00:11 | NUR ---
PATIENT SLEEPING IN CHAIR AT BEDSIDE, RESP EVEN AND UNLABORED. CALL LIGHT IN REACH.
--- NOTE | 2018-05-25 01:58 | NUR ---
PT SITTING IN CHAIR WITH EYES CLOSED RESTING COMFORTABLY. RESPIRATIONS EVEN AND UNLABORED. CALL LIGHT IN REACH. WILL CONTINUE TO MONITOR PT AND FOLLOW PLAN OF CARE.
[2018-05-25 03:50] VITALS: BP 109/41
[2018-05-25 05:14] LABS: BASOPHILS 0.3 % (0-2); EOSINOPHILS 1.6 % (0-7); HEMATOCRIT 28.1 % (42.0-54.0); HEMOGLOBIN 8.9 g/dL (13.5-17.5); IMMATURE GRANULOCYTES 0.9 % (0-5); LYMPHOCYTES 5.3 % (15-50); MCH 25.4 pg (26.0-34.0); MCHC 31.7 g/dL (31.0-37.0); MCV 80.1 fL (80.0-100.0); MONOCYTES 17.4 % (2-11); NEUTROPHILS 74.5 % (40-80); PLATELET COUNT 71 10x3/uL (130-400); RBC 3.51 10x6/uL (4.20-6.10); WBC 7.7 10x3/uL (4.8-10.8)
[2018-05-25 05:45] LABS: ANION GAP 17.7 mmol/L (8-16); BILIRUBIN - TOTAL 1.11 mg/dL (0.2-1.3); CALCIUM 8.4 mg/dL (8.5-10.1); CARBON DIOXIDE 24.3 mmol/L (21.0-32.0); CREATININE - SERUM 4.8 mg/dL (0.6-1.3); PROTEIN - SERUM 5.7 g/dL (6.4-8.2)
--- NOTE | 2018-05-25 06:13 | NUR ---
PT GLUCOSE WAS 173 THIS MORNING. PT REQUESTS THAT GLUCOSE BE TREATED AFTER HE EATS BREAKFAST. PT WAS TOLD THIS INFORMATION WILL BE PASS ON TO THE DAY SHIFT NURSE WHEN GIVING REPORT.
--- NOTE | 2018-05-25 07:46 | NUR ---
PATIENT IS SITTING UP IN CHAIR. HE IS A BRITTLE DIABETIC. HE HAS A IV IN THE RIGHT AC THAT IS SL. HE HAS A RIGHT IJ TRIALYSIS. HE HAS A WOUND ON HIS RIGHT FOOT AND THE DRESSING IS CLEAN DRY AND INTACT. THERE IS A ORDER FOR DAILY DRESSING CHANGES. HE IS ALERT AND ORIENTED AT THIS TIME.
--- NOTE | 2018-05-25 07:53 | NUR ---
RESTING QUIETLY NAD NOTED
--- NOTE | 2018-05-25 09:54 | NUR ---
INFORMED ROBBIE THAT PATIENT IS RETAINING FLUID. PATIENT REPORTS THAT HE TAKES LASIX AT HOME AND THEY WANT TO KNOW DOES HE NEED IT NOW. HIS LEGS ARE TIGHT AND FULL OF FLUID. HE HAS URINATED 240ML THIS MORNING.HE IS DRINKING THICKENED LIQUIDS. HE HAD 4 4OZ CUPS TODAY. ROBBIE ORDERED ONE TIME DOSE OF IV LASIX. SHE SAID IF IT WORKS GREAT. BUT IT MAY NOT BECAUSE HE IS NOT URINATING MUCH. SHE SAID THEY WILL BE SURE TO TRY TO REMOVE MORE FLUID DURING DIALYSIS.
[2018-05-25 10:50] VITALS: BP 123/32
--- NOTE | 2018-05-25 12:09 | MORECARE ---
CASE MANAGEMENT DISCHARGE SUMMARY PATIENT: MELISSA PETTY UNIT: [id number] ADM DATE: 05/14/18 AGE: 78 : 40 SEX: M ROOM/BED: D.2110 AUTHOR: MANUEL CADET PHYSICIAN: REFERRING PHYSICIAN: PHILLIP BARAHONA MD DATE OF SERVICE: 05/25/18 Discharge Plan Patient Name: MELISSA PETTY Facility: [facility]:[place] : 1940 Planned Disposition: Inpatient Rehab Anticipated Discharge Date: 05/23/18 Discharge Date: Expected LOS: 9 Initial Reviewer: [email or web address] Initial Review Date: 05/14/2018 Generated: 05/25/18 1:09 pm Comments DCP- Discharge Planning Updated by [id number]: Estela Barber on 05/25/18 11:[address] Patient Name: MELISSA PETTY Admission Status: ER Accout number: [id number] Admission Date: 05-14-2018 : 1940 Admission Diagnosis:METABOLIC ENCEPHALOPATHY Attending: PHILLIP BARAHONA Current LOS: 11 Anticipated DC Date: 05-23-2018 Planned Disposition: Inpatient Rehab Primary Insurance: MEDICARE A & B Discharge Planning Comments: FABY THACKER HAS A NOTE IN FROM 05/22/18, IT STATES SHE IS WAITING FOR A RESPONSE AND CHAIR TIME FROM [facility]. LOOKS TO BE [facility]. Community Relations Advisor: Estela Barber DCP- Discharge Planning Updated by [id number]: Margarito Markham on 05/24/18 10:[address] Patient Name: MELISSA PETTY Encounter No: [id number] : 1940 Primary Insurance: MEDICARE A & B Anticipated DC Date: 05-23-2018 Planned Disposition: Inpatient Rehab External Planned Provider: [facility] DCP follow-up note: CM SPOKE TO DU OF INPATIENT REHAB, THEY PLAN TO ACCEPT PT ONCE SURGERY CONSULT FOR HEMOSPLIT HAS BEEN COMPLETED. PT'S SPOUSE NOTIFIED IN ROOM, IN AGREEMENT WITH PT'S DISCHARGE TO INPATIENT REHAB. NOTIFY [facility] INPATIENT RE[facility] WHEN PT IS READY TO DISCHARGE TO REHAB AFTER HEMOSPLIT IS DONE. Margarito Markham, CASE MANAGEMENT DCP- Discharge Planning Updated by [id number]: Margarito Markham on 05/23/18 2:[address] Patient Name: MELISSA PETTY Encounter No: [id number] : 1940 Primary Insurance: MEDICARE A & B Anticipated DC Date: 05-23-2018 Planned Disposition: Inpatient Rehab External Planned Provider: [facility] DCP follow-up note: CM RECEIVED ORDER FOR INPATIENT REHAB PRESCREENING, SPOKE TO DU OF INPATIENT REHAB, [facility] INPATIENT [facility] WILL SCREEN FOR NPATIENT REHAB. CM SPOKE TO PT AND SPOUSE IN ROOM. MELISSA PETTY provided verbal consent to discuss current and ongoing needs with/in the presence of: SPOUSE, BERENICE. CM DISCUSSED ORDER, REHAB AVAILABILITY, LOCATIONS AND PROVIDERS. PT AND SPOUSE WOULD LIKE TO BE CONSIDERED FOR INPATIENT REHAB, PT STATES HE IS STILL WEAK AND HAVING BALANCE ISSUES. 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 IMPORTANT MESSAGE FROM MEDICARE PROVIDED AND EXPLAINED. CM WAITING INPATIENT PRESCREENING AND ADMISSION DETERMINATION FROM [facility] INPAT[facility]. Margarito Markham, CASE MANAGEMENT DCP- Discharge Planning Updated by [id number]: Hoda Martinez on 05/16/18 1:[address] CM spoke with Cheri from [facility] [phone]. She stated they was actively seeing patient and would resume care upon discharge. Just to notify them upon discharge. CM will continue to follow and assist as needed with discharge planning / needs. DCP- Discharge Planning Updated by [email or web address]: Zenobia Laureano on 05/14/18 6:[address] Patient Name: MELISSA PETTY Admission Status: ER Accout number: [id number] Admission Date: 05-14-2018 : 1940 Admission Diagnosis: Attending: PHILLPI BARAHONA Current LOS: 1 Anticipated DC Date: 05-17-2018 Planned Disposition: Primary Insurance: MEDICARE A & B Discharge Planning Comments: CM met with patient and his to complete initial dc planning assessment. CM educated patient's on the CM role and verbal consent given by patient's to complete assessment. Patient lives at home with his and is normally independent in his care. He has been on IV antibiotics for a 6 week regimen for a foot wound. He has [facility] and is seen by the Wound Clinic at [place]. At discharge patient's plans to take him home with resumption of home health. Confusion is new onset for the patient and this is the second time in the past week he has gotten confused. Patient denied known discharge needs at this time. CM will continue to follow and will assist as needed with dc plans/needs. Community Relations Advisor: Zenobia Laureano RN, [facility] DCPIA - Discharge Planning Initial Assessment Updated by [id number]: Zenobia Laureano on 05/14/18 7:06 pm * Is the patient Alert and Oriented? Yes * How many steps to enter\exit or inside your home? None * PCP Dr. Baldwin in [place] * [facility] in [place] * Preadmission Environment Home with Family * ADLs Independent * Equipment Cane Glucometer Rolling Walker * Other Equipment Insulin pump * List name and contact numbers for known caregivers / representatives who currently or will assist patient after discharge: Berenice Petty - - [phone] * Verbal permission to speak to the caregivers and representatives has been obtained from the patient. Yes * Community resources currently utilized Home Health * Please name any agencies selected above. [facility] - has a picc line he is on 6 weeks IV therapy for foot wound. He goes to the wound clinic in [place] under Dr. Diego. Last scheduled dose of IV antibiotic is tentatively set for 05/20/18. * Additional services required to return to the preadmission environment? Yes * Can the patient safely return to the preadmission environment? No * Has this patient been hospitalized within the prior 30 days at any hospital? Yes Coverage Notice Reviewer: [id number] - Margarito Markham Notice Issued Date-Time: 05/23/2018 15:20 Notice Type: IM Discharge Notice Notice Delivered To: Patient Relationship to Patient: Vocational Training Instructor Name: Delivery Method: HAND - Hand Delivered Kathleen Days: Prior Verbal Notification: Recipient Understood Notice: Yes Recipient Signature: Yes Med Rec Note Co-signed by Attending: Coverage Notice Comment: Last DP export: 05/24/18 11:02 a Patient Name: MELISSA PETTY Page 50306 at 1209 All edits/amendments must be made on the electronic document DICTATION DATE: 05/25/18 1208 CUSTOM FEED MILL OPERATOR HELPER: DM 05/25/18 1208 RPT#: [id number] DC DATE: STATUS: ADM IN [facility] [address] [place] [address] END OF REPORT
[2018-05-25 12:11] LABS: ANION GAP 16.6 mmol/L (8-16); CALCIUM 8.2 mg/dL (8.5-10.1); CARBON DIOXIDE 23.6 mmol/L (21.0-32.0); CREATININE - SERUM 5.3 mg/dL (0.6-1.3); POTASSIUM - SERUM 3.2 mmol/L (3.5-5.1)
--- NOTE | 2018-05-25 15:05 | NUR ---
DRESSING CHANGE COMPLETED ORDERED ON RIGHT FOOT AND LEFT FOREARM. RIGHT FOOT HAS A HALF DOLLAR SIZE SORE RIGHT SIDE OF FOOT. THE LEFT FOREARM HAS VERY THIN SKIN AND WEEPING EDEMA. SKIN IS CRACKING AND DRY ON ARMS AND LEGS BILATERALLY. RIGHT BIG TOE HAS HAD THE NAIL REMOVED AND IT IS WRAPPED WITH DRY CURLEX BECASUE IT IS JUST DRY AND SCABBED OVER.
--- NOTE | 2018-05-25 19:37 | NUR ---
RECEIVED REPORT, WILL ASSUME CARE OF PT, PT IS SITTING UP IN CHAIR, DENIES ANY NEEDS, CALL LIGHT IN REACH, WILL CONTINUE PLAN OF CARE, FAMILY IN ROOM
--- NOTE | 2018-05-25 21:01 | NUR ---
[id number], NO COVERAGE AT THIS TIME,PROVIDED A SNACK
[2018-05-25 21:32] VITALS: BP 106/41
--- NOTE | 2018-05-25 23:51 | NUR ---
RESTING IN BED WITH NO DISTRESS. RESPS NONLABORED. CALL LIGHT IN REACH. MONITOR AND CPOC.
[2018-05-25 23:55] VITALS: BP 108/31
[2018-05-26 03:55] VITALS: BP 120/25
[2018-05-26 05:23] LABS: ANION GAP 23.4 mmol/L (8-16); CALCIUM 8.4 mg/dL (8.5-10.1); CARBON DIOXIDE 20.1 mmol/L (21.0-32.0); CREATININE - SERUM 6.2 mg/dL (0.6-1.3)
[2018-05-26 05:41] LABS: POTASSIUM - SERUM 4.5 mmol/L (3.5-5.1)
--- NOTE | 2018-05-26 07:15 | NUR ---
PATIENT AWAKE AND ALERT. SITTING UP IN BED. PATIENT DENIES ANY NEEDS OR PAIN. WILL CONTINUE WITH PLAN OF CARE .
--- NOTE | 2018-05-26 09:00 | NUR ---
PATIENT SITTING UP IN BEDSIDE CHAIR. ASSESSMENT COMPLETED. VS GOOD. PATIENT DENIES ANY PAIN OR NEEDS. WILL CONTINUE TO MONITOR.
[2018-05-26 09:40] VITALS: BP 119/42
--- NOTE | 2018-05-26 11:00 | NUR ---
PATIENT STILL SITTING UP TO BED SIDE CHAIR. PATIENT COMPLAINHS OF LEFT LEG PAIN. MEDICATED PER JUN ORDER. CALL LIGHT IN REACH. BEDSIDE TABLE ACROSS [facility]. WILL CONTINUE TO MONITOR.
[2018-05-26 14:30] VITALS: BP 123/49
--- NOTE | 2018-05-26 15:07 | NUR ---
PATIENT VISITNG WITH FAMILY. PATIENT COMPLAINS OF LEG PAIN AND REQUEST PAIN RX. MEDICATED PER MAR ORDER. BEDSIDE TABLE ACROSS PATIENT LAP, CALL LIGHT IN REACH AND FAMILY AT BEDSIDE.
--- NOTE | 2018-05-26 18:28 | NUR ---
PATIENT SITTING UP IN BEDSIDE CHAIR WATCHING TV. FERRICET INFUSING. PATIENT DENIES ANY NEEDS OR PAIN. BEDSIDE TABLE ACROSS PATIENT. CALL LIGHT IN REACH.
--- NOTE | 2018-05-26 19:30 | NUR ---
RECEIVED REPORT, WILL ASSUME CARE OF PT, PT SITTING UP IN CHAIR, DENIES ANY NEEDS AT THIS TIME, EXPLAINED HE WILL BE NPO AFTER MIDNIGHT FOR HEMOSPLIT PLACEMENT, CALL LIGHT IN REACH, WILL CONTINUE PLAN OF CARE
[2018-05-26 20:00] VITALS: BP 122/64
--- NOTE | 2018-05-26 22:04 | NUR ---
CONSENTS SIGNED FOR HEMOSPLIT PLACEMENT, DRESSING TO R. FOOT CHANGED PER ORDER
[2018-05-27 01:00] VITALS: BP 119/53
[2018-05-27 04:00] VITALS: BP 128/57
[2018-05-27 04:52] LABS: BASOPHILS 0.2 % (0-2); EOSINOPHILS 0.6 % (0-7); HEMATOCRIT 28.8 % (42.0-54.0); HEMOGLOBIN 9.2 g/dL (13.5-17.5); IMMATURE GRANULOCYTES 0.7 % (0-5); MCH 25.7 pg (26.0-34.0); MCHC 31.9 g/dL (31.0-37.0); MCV 80.4 fL (80.0-100.0); MEAN PLATELET VOLUME 10.1 fL (7.4-10.4); NEUTROPHILS 83.5 % (40-80); RBC 3.58 10x6/uL (4.20-6.10); RDW 26.7 % (11.5-14.5)
[2018-05-27 05:01] LABS: PLATELET COUNT 100 10x3/uL (130-400); WBC 10.5 10x3/uL (4.8-10.8)
[2018-05-27 05:06] LABS: ANION GAP 22.5 mmol/L (8-16); CALCIUM 8.4 mg/dL (8.5-10.1); CARBON DIOXIDE 20.6 mmol/L (21.0-32.0); CREATININE - SERUM 6.2 mg/dL (0.6-1.3); POTASSIUM - SERUM 4.1 mmol/L (3.5-5.1)
--- NOTE | 2018-05-27 05:17 | NUR ---
RESTING WITH NO DISTRESS. MONITOR AND CPOC.
[2018-05-27] MEDS ORDERED: IPRAT-ALBUT 0.5-3 ML UPD (07:23)
[2018-05-27] MEDS ORDERED: BROVANA15 MCG/2 M INH (07:23)
--- NOTE | 2018-05-27 07:42 | NUR ---
REPORT RECEIVED. WILL CONTINUE WITH POC. PT CURRENTLY LYING SEMI FOWLERS. CALL LIGHT WITHIN REACH. PT IS RESTING AT THE MOMENT. RR EVEN AND UNLABORED ON 2L 02. R.IJ TRIALYSIS IS SALINE LOCKED. PT DENIES ANY NEEDS AT THIS TIME. WILL CTM.
[2018-05-27 08:37] VITALS: BP 126/55
--- NOTE | 2018-05-27 09:24 | MORECARE ---
CASE MANAGEMENT DISCHARGE SUMMARY PATIENT: MELISSA PETTY UNIT: [id number] ADM DATE: 05/14/18 AGE: 78 : 40 SEX: M ROOM/BED: D.2110 AUTHOR: MANUEL CADET PHYSICIAN: REFERRING PHYSICIAN: PHILLIP BARAHONA MD DATE OF SERVICE: 05/27/18 Discharge Plan Patient Name: MELISSA PETTY Facility: [facility]:[place] : 1940 Planned Disposition: Inpatient Rehab Anticipated Discharge Date: 05/27/18 Discharge Date: Expected LOS: 13 Initial Reviewer: [id number] Initial Review Date: 05/14/2018 Generated: 05/27/18 10:24 am Comments DCP- Discharge Planning Updated by [email or web address]: Estela Barber on 05/25/18 11:[address] Patient Name: MELISSA PETTY Admission Status: ER Accout number: [id number] Admission Date: 05-14-2018 : 1940 Admission Diagnosis:METABOLIC ENCEPHALOPATHY Attending: PHILLIP BARAHONA Current LOS: 11 Anticipated DC Date: 05-23-2018 Planned Disposition: Inpatient Rehab Primary Insurance: MEDICARE A & B Discharge Planning Comments: FABY THACKER HAS A NOTE IN FROM 05/22/18, IT STATES SHE IS WAITING FOR A RESPONSE AND CHAIR TIME FROM [facility]IC. LOOKS TO BE [facility]. Research And Development Researcher: Estela Barber DCP- Discharge Planning Updated by [id number]: Margarito Markham on 05/24/18 10:[address] Patient Name: MELISSA PETTY Encounter No: [id number] : 1940 Primary Insurance: MEDICARE A & B Anticipated DC Date: 05-23-2018 Planned Disposition: Inpatient Rehab External Planned Provider: [facility] DCP follow-up note: CM SPOKE TO DU OF INPATIENT REHAB, THEY PLAN TO ACCEPT PT ONCE SURGERY CONSULT FOR HEMOSPLIT HAS BEEN COMPLETED. PT'S SPOUSE NOTIFIED IN ROOM, IN AGREEMENT WITH PT'S DISCHARGE TO INPATIENT REHAB. NOTIFY [facility] WHEN PT IS READY TO DISCHARGE TO REHAB AFTER HEMOSPLIT IS DONE. Margarito Markham, CASE MANAGEMENT DCP- Discharge Planning Updated by [email or web address]: Margarito Markham on 05/23/18 2:[address] Patient Name: MELISSA PETTY Encounter No: [id number] : 1940 Primary Insurance: MEDICARE A & B Anticipated DC Date: 05-23-2018 Planned Disposition: Inpatient Rehab External Planned Provider: [facility] DCP follow-up note: CM RECEIVED ORDER FOR INPATIENT REHAB PRESCREENING, SPOKE TO DU OF INPATIENT REHAB, [facility] WILL SCREEN FOR NPATIENT REHAB. CM SPOKE TO PT AND SPOUSE IN ROOM. MELISSA PETTY provided verbal consent to discuss current and ongoing needs with/in the presence of: SPOUSE, BERENICE. CM DISCUSSED ORDER, REHAB AVAILABILITY, LOCATIONS AND PROVIDERS. PT AND SPOUSE WOULD LIKE TO BE CONSIDERED FOR INPATIENT REHAB, PT STATES HE IS STILL WEAK AND HAVING BALANCE ISSUES. 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 IMPORTANT MESSAGE FROM MEDICARE PROVIDED AND EXPLAINED. CM WAITING INPATIENT PRESCREENING AND ADMISSION DETERMINATION FROM [facility]. Margarito Markham, CASE MANAGEMENT DCP- Discharge Planning Updated by [email or web address]: Hoda Martinez on 05/16/18 1:[address] CM spoke with Cheri from [facility] [phone]. She stated they was actively seeing patient and would resume care upon discharge. Just to notify them upon discharge. CM will continue to follow and assist as needed with discharge planning / needs. DCP- Discharge Planning Updated by [id number]: Zenobia Laureano on 05/14/18 6:[address] Patient Name: MELISSA PETTY Admission Status: ER Accout number: [id number] Admission Date: 05-14-2018 : 1940 Admission Diagnosis: Attending: PHILLIP BARAHONA Current LOS: 1 Anticipated DC Date: 05-17-2018 Planned Disposition: Primary Insurance: MEDICARE A & B Discharge Planning Comments: CM met with patient and his to complete initial dc planning assessment. CM educated patient's on the CM role and verbal consent given by patient's to complete assessment. Patient lives at home with his and is normally independent in his care. He has been on IV antibiotics for a 6 week regimen for a foot wound. He has [facility] and is seen by the Wound [facility] at [place]. At discharge patient's plans to take him home with resumption of home health. Confusion is new onset for the patient and this is the second time in the past week he has gotten confused. Patient denied known discharge needs at this time. CM will continue to follow and will assist as needed with dc plans/needs. Research And Development Researcher: Zenobia Laureano RN, [facility] DCPIA - Discharge Planning Initial Assessment Updated by [id number]: Zenobia Laureano on 05/14/18 7:06 pm * Is the patient Alert and Oriented? Yes * How many steps to enter\exit or inside your home? None * PCP Dr. Baldwin in [place] * [facility] in [place] * Preadmission Environment Home with Family * ADLs Independent * Equipment Cane Glucometer Rolling Walker * Other Equipment Insulin pump * List name and contact numbers for known caregivers / representatives who currently or will assist patient after discharge: Berenice Petty - - [phone] * Verbal permission to speak to the caregivers and representatives has been obtained from the patient. Yes * Community resources currently utilized Home Health * Please name any agencies selected above. [facility] - has a picc line he is on 6 weeks IV therapy for foot wound. He goes to the wound clinic in [place] under Dr. Diego. Last scheduled dose of IV antibiotic is tentatively set for 05/20/18. * Additional services required to return to the preadmission environment? Yes * Can the patient safely return to the preadmission environment? No * Has this patient been hospitalized within the prior 30 days at any hospital? Yes Coverage Notice Reviewer: [id number] Nelson Markham Notice Issued Date-Time: 05/23/2018 15:20 Notice Type: IM Discharge Notice Notice Delivered To: Patient Relationship to Patient: Yeast Culture Developer Name: Delivery Method: HAND - Hand Delivered Kathleen Days: Prior Verbal Notification: Recipient Understood Notice: Yes Recipient Signature: Yes Med Rec Note Co-signed by Attending: Coverage Notice Comment: Reviewer: [id number] Nelson Markham Notice Issued Date-Time: 05/27/2018 9:10 Notice Type: IM Discharge Notice Notice Delivered To: Family Member Relationship to Patient: Spouse Yeast Culture Developer Name: BERENICE PETTY Delivery Method: HAND - Hand Delivered Kathleen Days: Prior Verbal Notification: Recipient Understood Notice: Yes Recipient Signature: Yes Med Rec Note Co-signed by Attending: Coverage Notice Comment: Last DP export: 05/25/18 11:09 a Patient Name: MELISSA PETTY Page [id number] at 0924 All edits/amendments must be made on the electronic document DICTATION DATE: 05/27/18922 CLIENT RENEWAL SPECIALIST: AILYN 05/27/18922 RPT#: [id number] DC DATE: STATUS: ADM IN [facility] [address] [place] [address] END OF REPORT
--- NOTE | 2018-05-27 09:38 | MORECARE ---
CASE MANAGEMENT DISCHARGE SUMMARY PATIENT: MELISSA PETTY UNIT: [id number] ADM DATE: 05/14/18 AGE: 78 : 40 SEX: M ROOM/BED: D.2110 AUTHOR: MANUEL CADET PHYSICIAN: REFERRING PHYSICIAN: PHILLIP BARAHONA MD DATE OF SERVICE: 05/27/18 Discharge Plan Patient Name: MELISSA PETTY [facility] [facility] 1940 Planned Disposition: Inpatient Rehab Anticipated Discharge Date: 05/27/18 Discharge Date: Expected LOS: 13 Initial Reviewer: [id number] Initial Review Date: 05/14/2018 Generated: 05/27/18 10:38 am Comments DCP- Discharge Planning Updated by [id number]: Margarito Markham on 05/27/18 8:[address] Patient Name: MELISSA PETTY Encounter No: [id number] : 1940 Primary Insurance: MEDICARE A & B Anticipated DC Date: 05-27-2018 Planned Disposition: Inpatient Rehab External Planned Provider: [facility] DCP follow-up note: CM SPOKE TO RONALD OF INPATIENT REHAB, CM NOTIFIED OF DISCHARGE ORDER; INPATIENT REHAB MAY NOT ACCEPT PT TODAY FO REHAB POST PROCEDURE. RONALD WILL CALL CM SHORTLY WITH DETERMINATION. PT AND SPOUSE NOTIFIED, IN AGREEMENT WITH DISCHARGE TO INPATIENT REHAB WHEN THEY WILL ACCEPT PT. IMPORTANT MESSAGE FROM MEDICARE PROVIDED AND DISCUSSED. [facility] TO CONTACT MED 2 NURSE WITH ROOM NUMBER WHEN READY TO ACCEPT PT AND NURSE REPORT. Margarito Markham, RONALD MANGEMENT DCP- Discharge Planning Updated by [id number]: Estela Barber on 05/25/18 11:[address] Patient Name: MELISSA PETTY Admission Status: ER Accout number: [id number] Admission Date: 05-14-2018 : 1940 Admission Diagnosis:METABOLIC ENCEPHALOPATHY Attending: PHILLIP BARAHONA Current LOS: 11 Anticipated DC Date: 05-23-2018 Planned Disposition: Inpatient Rehab Primary Insurance: MEDICARE A & B Discharge Planning Comments: FABY THACKER HAS A NOTE IN FROM 05/22/18, IT STATES SHE IS WAITING FOR A RESPONSE AND CHAIR TIME FROM [facility]. LOOKS TO BE [facility]. Institute Scientist: Estela Barber DCP- Discharge Planning Updated by [id number]: Margarito Markham on 05/24/18 10:[address] Patient Name: MELISSA PETTY Encounter No: [id number] : 1940 Primary Insurance: MEDICARE A & B Anticipated DC Date: 05-23-2018 Planned Disposition: Inpatient Rehab External Planned Provider: [facility] DCP follow-up note: CM SPOKE TO DU OF INPATIENT REHAB, THEY PLAN TO ACCEPT PT ONCE SURGERY CONSULT FOR HEMOSPLIT HAS BEEN COMPLETED. PT'S SPOUSE NOTIFIED IN ROOM, IN AGREEMENT WITH PT'S DISCHARGE TO INPATIENT REHAB. NOTIFY [facility] WHEN PT IS READY TO DISCHARGE TO REHAB AFTER HEMOSPLIT IS DONE. Margarito Markham, CASE MANAGEMENT DCP- Discharge Planning Updated by [id number]: Margarito Markham on 05/23/18 2:[address] Patient Name: MELISSA PETTY Encounter No: [id number] : 1940 Primary Insurance: MEDICARE A & B Anticipated DC Date: 05-23-2018 Planned Disposition: Inpatient Rehab External Planned Provider: [facility] DCP follow-up note: CM RECEIVED ORDER FOR INPATIENT REHAB PRESCREENING, SPOKE TO DU OF INPATIENT REHAB, [facility] WILL SCREEN FOR NPATIENT REHAB. CM SPOKE TO PT AND SPOUSE IN ROOM. MELISSA PETTY provided verbal consent to discuss current and ongoing needs with/in the presence of: SPOUSE, BERENICE. CM DISCUSSED ORDER, REHAB AVAILABILITY, LOCATIONS AND PROVIDERS. PT AND SPOUSE WOULD LIKE TO BE CONSIDERED FOR INPATIENT REHAB, PT STATES HE IS STILL WEAK AND HAVING BALANCE ISSUES. 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 IMPORTANT MESSAGE FROM MEDICARE PROVIDED AND EXPLAINED. CM WAITING INPATIENT PRESCREENING AND ADMISSION DETERMINATION FROM [facility]. Margarito Markham, CASE MANAGEMENT DCP- Discharge Planning Updated by [id number]: Hoda Martinez on 05/16/18 1:[address] CM spoke with Cheri from [facility] [phone]. She stated they was actively seeing patient and would resume care upon discharge. Just to notify them upon discharge. CM will continue to follow and assist as needed with discharge planning / needs. DCP- Discharge Planning Updated by [email or web address]: Zenobia Laureano on 05/14/18 6:[address] Patient Name: MELISSA PETTY Admission Status: ER Accout number: [id number] Admission Date: 05-14-2018 : 1940 Admission Diagnosis: Attending: PHILLIP BARAHONA Current LOS: 1 Anticipated DC Date: 05-17-2018 Planned Disposition: Primary Insurance: MEDICARE A & B Discharge Planning Comments: CM met with patient and his to complete initial dc planning assessment. CM educated patient's on the CM role and verbal consent given by patient's to complete assessment. Patient lives at home with his and is normally independent in his care. He has been on IV antibiotics for a 6 week regimen for a foot wound. He has [facility] and is seen by the Wound Clinic at [place]. At discharge patient's plans to take him home with resumption of home health. Confusion is new onset for the patient and this is the second time in the past week he has gotten confused. Patient denied known discharge needs at this time. CM will continue to follow and will assist as needed with dc plans/needs. Institute Scientist: Zenobia Laureano RN, [facility] DCPIA - Discharge Planning Initial Assessment Updated by [email or web address]: Zenobia Laureano on 05/14/18 7:06 pm * Is the patient Alert and Oriented? Yes * How many steps to enter\exit or inside your home? None * PCP Dr. Baldwin in [place] * [facility] in [place] * Preadmission Environment Home with Family * ADLs Independent * Equipment Cane Glucometer Rolling Walker * Other Equipment Insulin pump * List name and contact numbers for known caregivers / representatives who currently or will assist patient after discharge: Berenice Petty - - [phone] * Verbal permission to speak to the caregivers and representatives has been obtained from the patient. Yes * Community resources currently utilized Home Health * Please name any agencies selected above. [facility] - has a picc line he is on 6 weeks IV therapy for foot wound. He goes to the wound clinic in [place] under Dr. Diego. Last scheduled dose of IV antibiotic is tentatively set for 05/20/18. * Additional services required to return to the preadmission environment? Yes * Can the patient safely return to the preadmission environment? No * Has this patient been hospitalized within the prior 30 days at any hospital? Yes Coverage Notice Reviewer: [id number] Markham Notice Issued Date-Time: 05/23/2018 15:20 Notice Type: IM Discharge Notice Notice Delivered To: Patient Relationship to Patient: Property Disposal Manager Name: Delivery Method: HAND - Hand Delivered Kathleen Days: Prior Verbal Notification: Recipient Understood Notice: Yes Recipient Signature: Yes Med Rec Note Co-signed by Attending: Coverage Notice Comment: Reviewer: [id number] Markham Notice Issued Date-Time: 05/27/2018 9:10 Notice Type: IM Discharge Notice Notice Delivered To: Family Member Relationship to Patient: Spouse Property Disposal Manager Name: BERENICE PETTY Delivery Method: HAND - Hand Delivered Kathleen Days: Prior Verbal Notification: Recipient Understood Notice: Yes Recipient Signature: Yes Med Rec Note Co-signed by Attending: Coverage Notice Comment: Last DP export: 05/27/18 8:24 a Patient Name: MELISSA PETTY Page [phone] at 0938 All edits/amendments must be made on the electronic document DICTATION DATE: 05/27/18936 CAR CUSTOMIZER: AILYN 05/27/18936 RPT#: [id number] DC DATE: STATUS: ADM IN [facility] [address] [place] [address] END OF REPORT
--- NOTE | 2018-05-27 11:24 | NUR ---
RESTING QUIETLY. NO APPARENT DISTRESS.WILL CONT WITH POC.
--- NOTE | 2018-05-27 14:14 | NUR ---
PREOP MEDICATIONS ADMINISTERED. NS INFUSING @K[facility] VIA R.IJ TRIALYSIS. RR EVEN AND UNLABORED ON 2L 02. FSBS WAS 365 PRIOR TO SURGERY. INSULIN HELD R/T POSSIBILITY OF HYPOGLYCEMIA AND NPO STATUS. AT BEDSIDE. PT DENIES ANY NEEDS. WILL CTM.
--- NOTE | 2018-05-27 16:54 | NUR ---
RECEIVED PT FROM INSTANT PRINTER OPERATOR. PT IS LYING SUPINE. CALL LIGHT W/I REACH. FAMILY AT BEDSIDE. VSS AND WNL. RR EVEN AND UNLABORED ON 2L 02. RIGHT FEMORAL CATH SITE IS C/D/I. PT DENIES ANY NEEDS. WILL KEEP FLAT FOR THE NEXT 4 HOURS. WILL CTM.
--- NOTE | 2018-05-27 17:19 | NUR ---
PT RETURNED FROM OR WITH NEW HEMESPLIT THAT IS C/D/I AND OR REMOVED TRIALYSIS. RECEIVED ORDERS TO USE HEMESPLIT BY DAVIS SMITH AND TO ORDER HEPARIN 1000UNITS/1ML FOR 3L ML. WILL PLACE ORDER.
[2018-05-27 20:00] VITALS: BP 118/83
--- NOTE | 2018-05-27 21:27 | NUR ---
SPOKE WITH TO SEE IF WE COULD HOLD D/C TO REHAB UNTIL AM, BECAUSE PT IS BLEEDING FROM NEW HEMOSPLIT PLACEMENT TODAY, WAS TOLD THATS NOT A REASON, BUT WAS TOLD TO ORDER ABG AND H&H, AND CALL REPORT BACK TO HIM
[2018-05-27 21:59] LABS: HEMATOCRIT 28.4 % (42.0-54.0)
--- NOTE | 2018-05-27 22:20 | NUR ---
CALL BACK, SAID PT WAS STABLE ENOUGH TO GO TO REHAB, I EXPLAIN FAMILY WANTED HIM TO GO IN AM, HE SAID THEY DIDNT HAVE A CHOICE, THEY NEED THAT BED, HE SAID THEY HAD 14 IN ER WAITING FOR A BED
--- NOTE | 2018-05-27 22:24 | NUR ---
CALL DR. BARAHONA ABOUT LAB RESULTS, LEFT MESSAGE WILL CALL BACK
--- NOTE | 2018-05-27 23:11 | NUR ---
PT D/C TO REHAB, WAS NOTIFIED, HEMOSPLIT HEP LOCK 1.9ML, ALL BELONGS WERE TAKE TO [facility]
[2018-05-29 09:19] LABS: VIRAL - RESULT No virus isolated. (())
--- NOTE | 2018-05-29 18:26 | OP ---
PATIENT NAME: MELISSA PETTY MEDICAL RECORD: [id number] :[birth year] LOCATION:D.M2 D.0 ADMISSION DATE:05/14/18 SURGEON: JESSENIA THORNTON MD DATE OF OPERATION: 05/27/2018 PREOPERATIVE DIAGNOSIS: End-stage renal disease without chronic access for hemodialysis. POSTOPERATIVE DIAGNOSIS: End-stage renal disease without chronic access for hemodialysis. PROCEDURES: 1. Placement of right internal jugular 19 cm HemoSplit catheter (tunneled cuffed dual-lumen hemodialysis catheter) under fluoroscopic guidance. 2. Immediate surgeon interpretation of the fluoroscopic images. SURGEON: Jessenia Thornton MD PARTICLEBOARD FACTORY WORKER: None. BLOOD LOSS: Minimal. ANESTHESIA: Local with IV sedation. COMPLICATIONS: None. The risks, possible complications and alternatives to the procedure were explained to the patient. He elects to proceed. The discussion specifically included, but was not limited to, bleeding requiring emergency reoperation, infection, great vessel injury, and pneumothorax. OPERATIVE COURSE: The patient was conveyed to the operating room electively on 05/27/2018. IV sedation was induced by the anesthesia staff. The right neck and right chest were sterilely prepped and draped. No radiologist was present for this procedure. Static fluoroscopic images were obtained and are kept in the PACS system. The surgeon interpretation of the radiographic images is dictated within the body of this operative note. A local anesthetic was used to infiltrate the skin and subcutaneous tissues in the right anterior superior chest as well as the right neck. An 0.035 Glidewire was advanced down through the middle lumen of the Trialysis catheter. An incision was accomplished around the Trialysis catheter. A counterincision was accomplished in the right superior anterior infraclavicular chest. I tunneled the 19 cm HemoSplit catheter from the chest incision to the neck incision. The Trialysis catheter was removed. Over the Glidewire, I advanced a dilator sheath. The dilator and wire were removed. The tips of the HemoSplit catheter were advanced down through the peel-away sheath, which was then peeled away. I then pulled back on the HemoSplit catheter to seat the cuff in the subcutaneous tissues. Under fluoroscopy, there was no apparent kinking or twisting of the HemoSplit catheter. There was no radiographic evidence of a complication. The longest tip of the HemoSplit catheter appeared to be near the cavoatrial junction. The neck incision was closed with horizontal mattress 3-0 Vicryl sutures. The flange of the HemoSplit catheter was sutured to the underlying skin with 2-0 nylons. Both lumens of the HemoSplit catheter were OPERATIVE REPORT [id number] MELISSA PETTY flushed and then topped off with the appropriate amount of concentrated heparin. Sterile dressings were applied. The patient was then conveyed to the post-anesthesia care unit where he was in stable condition. TRANSINT:[id number] Voice Confirmation ID: [id number] DOCUMENT ID: [id number] JESSENIA THORNTON MD at 1826 CC: PHILLIP BARAHONA MD and MELINDA CEVALLOS [phone] DICTATION DATE: 05/27/18 163 TRANSPORTATION JOB TITLES: 05/27/18 2250 DIS IN 05/27/18 [facility] [address] [place] [address]
[2018-05-30 14:45] LABS: INTERPRETATION: See Report
== END 2018-05-27 23:13 | DRG 682 ==
LOC: D.ER 16:15 → D.EDHOLD 17:49 → D.MS 17:49 → D.M2 17:49 → D.ICU 17:49 → D.MS 18:06 → D.ICU 05-16 10:14 → D.M2 05-19 22:36
PROVIDERS: Emergency Medicine; Family Medicine; Internal Medicine Hematology & Oncology; Internal Medicine Nephrology; Internal Medicine Pulmonary Disease; Surgery; ADMIT Internal Medicine Nephrology
PROC: 05HM03Z Insertion of Infusion Device into Right Internal Jugular Vein, Open Approach (ICD-10-PCS; 2018-05-16)
PROC: 05HM33Z Insertion of Infusion Device into Right Internal Jugular Vein, Percutaneous Approach (ICD-10-PCS; principal; 2018-05-27 12:45)
DX: N17.0 Acute kidney failure with tubular necrosis (principal); G93.41 Metabolic encephalopathy; J96.01 Acute respiratory failure with hypoxia; I50.43 Acute on chronic combined systolic (congestive) and diastolic (congestive) heart failure; I13.0 Hypertensive heart and chronic kidney disease with heart failure and stage 1 through stage 4 chronic kidney disease, or unspecified chronic kidney disease; E87.2 Acidosis; R04.2 Hemoptysis; J44.1 Chronic obstructive pulmonary disease with (acute) exacerbation; N17.9 Acute kidney failure, unspecified; E11.22 Type 2 diabetes mellitus with diabetic chronic kidney disease; N18.9 Chronic kidney disease, unspecified; E11.40 Type 2 diabetes mellitus with diabetic neuropathy, unspecified; E87.5 Hyperkalemia; D50.9 Iron deficiency anemia, unspecified; E86.0 Dehydration; G47.33 Obstructive sleep apnea (adult) (pediatric); I73.9 Peripheral vascular disease, unspecified; E78.5 Hyperlipidemia, unspecified; S91.301A Unspecified open wound, right foot, initial encounter; E83.39 Other disorders of phosphorus metabolism

== ENCOUNTER 2018-05-27 23:48 | Inpatient (IN) | payer MEDICARE, BC ==
[~2018-05-27] VITALS: Ht 182.9 cm; Wt 82.8 kg
[~2018-05-27 23:48] MED LIST: BROVANA15 MCG/2 M INH; CYMBALTA60 MG PO; ELIQUIS2.5 MG PO; HUMALOG 30100 UNITS/ SC; IPRAT-ALBUT 0.5-3 ML UPD; LASIX80 MG PO; MAXIPIME1 GM IV; PEPCID AC20 MG PO; ROPINIROLE HCL2 MG PO; SODIUM BICARBO650 MG PO; TRAVATAN Z2.5 ML EACH EYE
[2018-05-28 01:19] VITALS: BP 120/49; BMI 25.8
--- NOTE | 2018-05-28 06:26 | NUR ---
RAPID RESPONSE CALLED, FBSB 21 GAVE GLUCAGEN 1MG, RECHECKED FSBS 18. BP 178/80, RR 12. ICU OBTAINED IV IN RIGHT AC 22G, GAVE D5O. BS 152, BP 152/68. PATIENT ANXIOUS AND HARD TO CALM.
[2018-05-28 07:15] LABS: BASOPHILS 0.2 % (0-2); EOSINOPHILS 1.1 % (0-7); HEMATOCRIT 28.2 % (42.0-54.0); IMMATURE GRANULOCYTES 0.8 % (0-5); LYMPHOCYTES 6.4 % (15-50); MCH 25.6 pg (26.0-34.0); MCHC 31.9 g/dL (31.0-37.0); MCV 80.1 fL (80.0-100.0); MEAN PLATELET VOLUME 9.7 fL (7.4-10.4); MONOCYTES 15.6 % (2-11); NEUTROPHILS 75.9 % (40-80); RBC 3.52 10x6/uL (4.20-6.10); RDW 27.2 % (11.5-14.5); WBC 8.5 10x3/uL (4.8-10.8)
[2018-05-28 07:26] LABS: PLATELET COUNT 133 10x3/uL (130-400)
[2018-05-28 07:27] LABS: CALCIUM 8.1 mg/dL (8.5-10.1); CREATININE - SERUM 5.4 mg/dL (0.6-1.3)
--- NOTE | 2018-05-28 08:15 | NUR ---
PT RESTING IN BED HARD TO AROUSE WILL RECHECK PT BS
--- NOTE | 2018-05-28 08:30 | NUR ---
PT BS RE CHECKED IT WAS 54 WILL GIVE AMP 1/[address] HADLEY ORDER WILL RE CHECK
--- NOTE | 2018-05-28 08:40 | NUR ---
BS 154 WILL MONITER FOR BS CHANGED
--- NOTE | 2018-05-28 12:15 | NUR ---
EATING LUNCH.CL IN REACH.
[2018-05-28 13:02] VITALS: Ht 182.9 cm; Wt 82.8 kg
[2018-05-28 19:00] VITALS: BP 103/52
--- NOTE | 2018-05-28 20:45 | NUR ---
THE PATIENT WAS AWAKE AND WATCHING TELEVISION WHEN STAFF ENTERED HIS AREA. BED IN THE LOW POSITION WITH SIDERAILS X2 AND CALL LIGHT WITHIN REACH. THE PATIENT DEMONSTRATES APPROPRIATE USE OF A CALL LIGHT. THE PATIENT APPEARS COMFORTABLE WITH NO QUESTIONS OR CONCERNS AT THIS TIME.
--- NOTE | 2018-05-29 04:45 | NUR ---
THE PATIENT APPEARS TO BE SLEEPING WITH BED IN LOW POSITION, SIDERAILS X2, AND CALL LIGHT WITHIN REACH.
[2018-05-29 07:38] LABS: BASOPHILS 0.2 % (0-2); EOSINOPHILS 1.1 % (0-7); HEMATOCRIT 28.2 % (42.0-54.0); IMMATURE GRANULOCYTES 0.6 % (0-5); LYMPHOCYTES 7.2 % (15-50); MCH 25.9 pg (26.0-34.0); MCHC 31.9 g/dL (31.0-37.0); MCV 81.3 fL (80.0-100.0); MEAN PLATELET VOLUME 10.1 fL (7.4-10.4); MONOCYTES 16.3 % (2-11); NEUTROPHILS 74.6 % (40-80); RBC 3.47 10x6/uL (4.20-6.10)
[2018-05-29 07:44] LABS: CREATININE - SERUM 5.7 mg/dL (0.6-1.3)
[2018-05-29 07:45] LABS: ANION GAP 23.1 mmol/L (8-16); CARBON DIOXIDE 17.7 mmol/L (21.0-32.0); POTASSIUM - SERUM 3.8 mmol/L (3.5-5.1)
[2018-05-29 07:48] LABS: PLATELET COUNT 93 10x3/uL (130-400); WBC 6.2 10x3/uL (4.8-10.8)
[2018-05-29 08:00] VITALS: BP 102/43
--- NOTE | 2018-05-29 08:00 | NUR ---
SHIFT ASSMT COMPLETED.BREAKFAST GIVEN.SITTING UP ON SIDE OF BED.CL IN REACH.EDMA TO LEFT ARM AND LEGS BILAT.
[2018-05-29 08:58] LABS: CRENATED CELLS 1+; PLATELET ESTIMATE DECREASED; TARGET CELLS OCC
[2018-05-29 08:59] LABS: ACANTHOCYTES OCC; ANISOCYTOSIS OCC; SCHISTOCYTES OCC
[2018-05-29 12:00] VITALS: BP 130/69
--- NOTE | 2018-05-29 12:00 | NUR ---
SITTING UP IN WC FOR LUNCH.FSBS 279 ONLY REQUEST 4 UNITS/SS BE GIVEN.
--- NOTE | 2018-05-29 14:00 | NUR ---
TAKEN TO HD/WC.MART CH[facility] VISITING ; WANTS PT TO GET INSULIN PUMP BACK FROM HOME AND START USING AGAIN;PT STATES WILL TELL HIS .
--- NOTE | 2018-05-29 17:30 | NUR ---
BACK FROM HD. AT BEDSIDE.VS STABLE.SUPPER GIVEN. BROUGHT INSULIN PUMP FROM HOME WITH CARTRIDGE AND TUBING.PT TO SET BASIL RATE AND COVER FOR INSULIN.FSBS 224.AWAITING SETTING PUMP.
--- NOTE | 2018-05-29 18:30 | NUR ---
STATES WILL GET PUMP UNPLUGGED;REPORTS NO INSULIN COVERAGE FOR THE 224 FSBS.WILL RECHECK AT 9PM.
[2018-05-29 19:00] VITALS: BP 113/36
--- NOTE | 2018-05-29 20:00 | NUR ---
FSBS 358. STATES HIS INSULIN PUMP IS IN USE. AT BEDSIDE, STATES HE SAID HE GAVE HIMSELF 6UNITS TODAY VIA THE PUMP, HE NODDED IN AGREEMENT. UNABLE TO FIND HISTORY, CHARGE NOTIFIED. PT GAVE SELF 4 UNITS WILL REASSESS SOON. . PT IS VERY TIRED, COVERING SELF IN 3 THICK BLANKETS, FEELS VERY WARM. WILL MONITOR CLOSELY.
--- NOTE | 2018-05-29 21:45 | NUR ---
FSBS 370. ASSESSED PUMP WITH QC MANAGER. IT APPEARS HE'S BEEN GIVING HIMSELF INSULIN AT A SLOW BASAL RATE AND HAS BEEN UNABL TO OPERATE HIS PUMP INDEPENDENTLY AND HAS TROUBLE SEEING THE BUTTONS/WORDS/READINGS EVEN WITH GLASSES ON. GUIDED PT TO SUSPEND HIS PUMP/INFUSION. WILL CONTINUE TO MONITOR.
[2018-05-30 06:46] VITALS: BP 113/62
--- NOTE | 2018-05-30 08:00 | NUR ---
SHIFT ASSMT COMPLETED.DENIES NEEDS.HAD SOME CONFUSION IN NIGHT WITH INSULIN PUMP FROM HOME. VISITING.DC'D INSULIN PUMP THAT IS ON SUSPEND FROM PATIENT.WILL FOLLOW NEW ORDER FOR LANTUS;AWAITING PEN FROM PHARMACY.RT ARM SL OUT.DISCONTIUED WITH TIP INTACT.BREAKFAST GIVEN.SITTING ON SIDE OF BED.STILL HAS EDEMA TO LEFT ARM AND BILAT LEGS.ALERT AND ORIENTED THIS AM BUT VERY TIRED.
--- NOTE | 2018-05-30 08:30 | RHP ---
PATIENT: MELISSA PETTY MEDICAL RECORD: [id number] ACCOUNT: [id number] [id number] : 40 ADMISSION DATE: 05/27/18 REHABILITATION HISTORY AND PHYSICAL EXAMINATION POST ADMISSION PHYSICIAN EXAMINATION DATE OF ADMISSION: 05/27/2018 ADMITTING DIAGNOSIS: Acute toxic metabolic encephalopathy. HISTORY OF PRESENT ILLNESS: The patient is a 78-year-old gentleman admitted to the rehab with a working diagnosis of a neurological disorder of acute toxic metabolic encephalopathy. He presented with a 2-week onset of confusion and presented to the acute hospital. His had taken him to the doctor and he had still not improved. He presented to ED on 05/14/2018 with confusion, non-coherent speech, noted to have encephalopathy and noted to be in severe renal failure with a creatinine greater than 5. reported difficulty with urination. He has got acute kidney injury with [id number] kidney disease and suspected he was nearing end-stage renal dialysis coupled with a suspected CHF and possible volume overload. His UA was largely normal. He has got a past medical history of insulin-dependent diabetes. He is on a pump. He has got hypertension, chronic kidney disease, CHF, cardiac murmur, chronic nonhealing wound on the right outer ankle, aortic valve replacement back in 2014, diabetes, hyperlipidemia. He has got a history of AFib and hepatitis, also history of peripheral arterial disease status post shunts in the past. 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 He has been having some interventions done by Dr. Ray Webb in [place] during the end of March. He has got obstructive sleep apnea and uses CPAP. He has got a history of smoking 1 pack per day for 40 years, did quit in 2000. The patient does have increased shortness of breath and respiratory distress at times. A rapid response was called on 05/16/2018, he was transferred to ICU with pulmonary consultation. He remained in the ICU until 05/19/2018. After a morning rapid response, he was placed on BiPAP at 75% FiO2. Surgery was consulted. Trialysis catheter was placed. He was seeing hematology/oncology throughout his stay secondary to anemia and thrombocytopenia. Blood sugars have been quite variable throughout his stay. He had an extended stay in acute hospital. He is dialyzing on Sunday, Sunday and Sunday. He is on supplemental O2. He was on no O2 at home prior to this. He is a new hemodialysis patient. He has had impaired cognition, but this is slowly clearing. He is receiving IV iron for anemia, receiving wound care for chronic wound care, weakness and high fall risk, impaired mobility and self-care deficit. These are all barriers to his discharge. He was living at home with his . He was moderately independent with single point cane for mobility. He was moderately independent with use of equipment for bathing, but independent with other ADLs. His cognition continues to clear. He is currently set up for mod assist for ADLs and min assist to mod assist for mobility. He and his plan for him to return home at his prior level of functioning or better if possible. COMORBIDITIES: In this patient include oropharyngeal dysphagia, dysarthric speech, sepsis, CHF, peripheral vascular disease, depression, thrombocytopenia, iron-deficient microcytic anemia, chronic back pain, dehydration, depression, restless legs, atrial fib, confusion, COPD, hypertension, pacemaker placement, chronic right foot wound, history of tobacco use, obstructive sleep apnea, electrolyte abnormalities, pleural effusion, deconditioning, hepatitis, alcohol HISTORY AND PHYSICAL [id number] PETTY,MELISSA use, hyperlipidemia, aortic valve replacement, atrial fib. PAST MEDICAL HISTORY: Significant for neuropathy, diabetes, hypertension, CHF, peripheral vascular disease, coronary artery disease, murmur, renal failure, chronic back pain, diabetic wounds and tobacco use. PAST SURGICAL HISTORY: Includes pacemaker placement. He has got a history of surgery for peripheral arterial and peripheral vascular disease, insulin pump placement, amputation of toe and stent placement. ALLERGIES: CODEINE. CURRENT MEDICATIONS: Include Requip 2 mg p.o. at bedtime, sodium bicarbonate 650 t.i.d. He is on potassium chloride rider. He is on 75 cc per hour of 1.5 normal saline with D5. He is on [facility]. He is on furosemide 80 mg daily, Pepcid 20 mg b.i.d., Cymbalta 60 mg daily, and Brovana 15 mcg b.i.d. HABITS: Once again had an extended excessive period of tobacco use, but quit. Currently does have some alcohol use. FAMILY HISTORY: Noncontributory. SOCIAL HISTORY: The patient hopes to return back home with his and get back to his prior level of functioning where he is single point cane. REVIEW OF SYSTEMS: GENERAL: He does complain of weakness and fatigue. HEENT: Denies cold, cough, or congestion. CARDIOVASCULAR: Denies chest pain. PHYSICAL EXAMINATION: VITAL SIGNS: Stable, afebrile. GENERAL: A well-developed elderly gentleman in no acute distress, alert upon exam. HEENT: Normocephalic and atraumatic. Mucosa moist. NECK: Supple. No lymphadenopathy. LUNGS: Clear in upper hartmann. HEART: Regular rate and rhythm. He does have a holosystolic murmur. ABDOMEN: Benign. EXTREMITIES: No clubbing, cyanosis or edema. NEUROLOGIC: He does have noted proximal muscle weakness. LABORATORY DATA: White count is 8.5, H&H of 9 and 28 and platelet count was noted to be 133. His sodium is 138, potassium 3.0, BUN and creatinine of 58 and 5.4 and blood sugar is noted to be 105. ASSESSMENT: This is a 78-year-old gentleman who is admitted to rehab with a working diagnosis of acute toxic metabolic encephalopathy. The patient has potential to make improvement. We instituted the following multidisciplinary therapies which included, but not limited to physical, occupational, respiratory, speech, nutritional services, prosthetics and orthotics. Given his complex medical condition and risk for more complications, rehabilitation services cannot be provided at a low level of care such a skilled nurse facility. HISTORY AND PHYSICAL [id number] MELISSA PETTY PLAN: 1. Admit to [facility] for intensive inpatient therapy to include the following disciplines: A. Physical therapy to improve gait, all transfer skills and bed mobility to a modified independent level. B. Occupational therapy to a modified independent level. C. Case management to assist with discharge planning and placement options. D. Nutrition to assist with nutritional needs. E. Rehabilitation nursing to assist in monitoring the patient's underlying medical conditions and to assist with any type of bowel and bladder management. 2. The patient's current medications and medical care will be continued. 3. The patient will be placed on standard fall precautions. 4. The patient's estimated length of stay is approximately 7-10 days. 5. We will discuss this patient during care team staff meeting this week. Appreciate renal seeing this patient also. TRANSINT:[id number] Voice Confirmation ID: [id number] DOCUMENT ID: [id number] FRANCI notes whether there has been none or any medical/functional change since admission: - No change since prescreen. FRANCI attests patient continues to be appropriate for IRF: - Continues to be appropriate. TAN BUSTOS MD at 0830 CC: [id number] DICTATION DATE: 05/28/18 0858 OCCUPATIONAL THERAPY CO DIRECTOR: 05/28/18 0945 ADM IN [place] [id number] [place] [id number]
[2018-05-30 12:00] VITALS: BP 92/48
--- NOTE | 2018-05-30 12:00 | NUR ---
SITTING UP EATING LUNCH.
--- NOTE | 2018-05-30 13:37 | NUR ---
Nutrition Follow Up: Chart reviewed Diet: Renal ADA PO Intake: 100% meal avg BM: 05/30/18 Labs reviewed - Glucose elevated Meds noted including Lantus, Lasix, Humalog Rec continue current diet. RD following.
--- NOTE | 2018-05-30 16:00 | NUR ---
RESTING QUIETLY IN BED.
[2018-05-30 18:00] VITALS: BP 139/37
--- NOTE | 2018-05-30 19:30 | NUR ---
ASSESSMENT PER FLOW SHEET, DRESSING TO LEFT ARM CDI WITH NO DRAINAGE NOTED, RIGHT CHEST HEMISPLIT INTACT WITH NO REDNESS OR EDEMA NOTED, PT HAD BM TODAY, USES URINAL WITH NO DIFFICULTY, EAR CUSHIONS FOR O2 PLACED ON TUBING FOR COMFORT, PT STATES "OH, THANK YOU", PT DENIES FURTHER NEEDS OR PAIN AT THIS TIME, BED IN LOW POSITION, SIDE RAILS X 2, CALL LIGHT IN REACH, BED ALARM ON AND WORKING PROPERLY
--- NOTE | 2018-05-30 21:42 | NUR ---
PT RESTING WITH EYES CLOSED, AROUSES TO SOFT VERBAL STIMULATION, OBTAINED FSBS
--- NOTE | 2018-05-30 21:48 | NUR ---
ADM 2100 MEDS PER MD ORDERS, SEE EMAR, PT SERVED SNACK, PT INST ON TO EAT SNACK, PT DENIES FURTHER NEEDS OR PAIN, BED IN LOW POSITION, SIDE RAILS X 2, CALL LIGHT IN REACH, BED ALARM ON AND WORKING PROPERLY
--- NOTE | 2018-05-30 22:30 | NUR ---
PT RESTING WITH EYES CLOSED, RESP QUIET, NO DISTRESS NOTED, LEFT UNDISTURBED AT THIS TIME, PT ATE CONSUMED 100% OF SNACK, BED IN LOW POSITION, SIDE RAILS X 2, CALL LIGHT IN REACH, BED ALARM ON AND WORKING PROPERLY
--- NOTE | 2018-05-31 00:05 | NUR ---
THIS RN AND CHELE SPANGLER CHARGE NURSE TO ROOM, DRESSING CHANGED PER MD ORDERS, SEE MD ORDERS, PT DENIES NEEDS OR PAIN AT THIS TIME, BED IN LOW POSITION, SIDE RAILS X 2, CALL LIGHT IN REACH, BED ALARM ON AND WORKING PROPERLY
[2018-05-31 00:16] VITALS: BP 122/60
--- NOTE | 2018-05-31 02:30 | NUR ---
PT RESTING WITH EYES CLOSED, RESP QUIET, NO DISTRESS NOTED, LEFT UNDISTURBED AT THIS TIME, BED IN LOW POSITION, SIDE RAILS X 2, CALL LIGHT IN REACH, BED ALARM ON AND WORKING PROPERLY
[2018-05-31 06:11] LABS: HEMATOCRIT 27.3 % (42.0-54.0); HEMOGLOBIN 8.8 g/dL (13.5-17.5); MCH 26.1 pg (26.0-34.0); MCHC 32.2 g/dL (31.0-37.0); MEAN PLATELET VOLUME 9.7 fL (7.4-10.4); PLATELET COUNT 98 10x3/uL (130-400); RBC 3.37 10x6/uL (4.20-6.10); RDW 28.7 % (11.5-14.5); WBC 5.2 10x3/uL (4.8-10.8)
[2018-05-31 06:19] VITALS: BP 119/43
--- NOTE | 2018-05-31 06:19 | NUR ---
PT AWAKE, OBTAINED FSBS, ADM 0600/0700 MED PER MD ORDERS, SEE EMAR, SNACK PROVIDED, DENIES NEEDS OR PAIN AT THIS TIME, PT UP TO SIDE OF BED
[2018-05-31 06:26] LABS: CALCIUM 7.8 mg/dL (8.5-10.1); CREATININE - SERUM 4.7 mg/dL (0.6-1.3)
[2018-05-31 06:31] LABS: ANION GAP 16.4 mmol/L (8-16); CARBON DIOXIDE 24.8 mmol/L (21.0-32.0); POTASSIUM - SERUM 3.2 mmol/L (3.5-5.1)
[2018-05-31 08:35] LABS: LYMPHOCYTES 6 % (15-50); MONOCYTES 8 % (2-11); NEUTROPHILS 79 % (40-80); PLATELET ESTIMATE DECREASED
[2018-05-31 12:06] VITALS: BP 102/43
--- NOTE | 2018-05-31 16:38 | NUR ---
Pt has open wound on right lateral foot measuring 2cm x 2.5cm x 0.8cm. Current treatment is apply zinc paste around wound edges, sanyl ointment in wound bed, covering with adaptic and wrapping with kerlix. Wound care continues to monitor.
--- NOTE | 2018-05-31 18:43 | NUR ---
RESTING IN BED. IN ROOM WITH PT.
--- NOTE | 2018-05-31 19:52 | NUR ---
PATIENT IS SLEEPING. BED IS DOWN LOW WITH SIDE RAILS UP X2. CALL LIGHTIS IN REACH.
--- NOTE | 2018-05-31 22:24 | NUR ---
PT IS RESTING QUIETLY IN BED WITH EYES CLOSED. NO DISTRESS NOTED.
--- NOTE | 2018-06-01 01:00 | NUR ---
PT RESTING QUIETLY IN BED WITH EYES CLOSED. NO DISTRESS NOTED.
[2018-06-01 01:39] VITALS: BP 159/72
--- NOTE | 2018-06-01 04:44 | NUR ---
RESTING IN BED WITH EYES CLOSED.
[2018-06-01 06:41] VITALS: BP 138/39
[2018-06-01 08:18] VITALS: BP 119/59
[2018-06-01 12:04] VITALS: BP 135/54
--- NOTE | 2018-06-01 12:04 | NUR ---
FSBS 412. DR BUSTOS NOTIFIED. NO NEW ORDERS
--- NOTE | 2018-06-01 12:39 | NUR ---
SITTING UP IN WC IN ROOM EATING LUNCH., SON IN ROOM WITH PT
[2018-06-01 18:20] VITALS: BP 95/53
--- NOTE | 2018-06-01 18:33 | NUR ---
RESTING QUIETLY IN BED. HAD SHOWER WHEN WAS HERE EARLIER. CALL LIGHT IN REACH
--- NOTE | 2018-06-01 19:12 | NUR ---
PATIENT IS SLEEPING. BED IS DOWN LOW WITH SIDE RAILS UP X2. CALL LIGHT IS IN REACH.
--- NOTE | 2018-06-01 21:18 | NUR ---
PT RESTING IN BED WITH EYES OPEN. NO NEEDS VOICED. TOLERATED HS MEDS WITHOUT DIFFICULTY.
--- NOTE | 2018-06-02 00:07 | NUR ---
PT NOTED TO HAVE A SMALL RIGHT NARE NOSEBLEED. HE WAS HOLDING PRESSURE ON IT. NO BLEEDING NOTED AT THE MOMENT.
[2018-06-02 00:27] VITALS: BP 121/60
[2018-06-02 05:30] VITALS: BP 110/51
--- NOTE | 2018-06-02 05:54 | NUR ---
PT SITTING ON THE SIDE OF HIS BED DRINKING A CUP OF COFFEE. NO FURTHER NEEDS VOICED.
[2018-06-02 07:59] VITALS: BP 130/60
--- NOTE | 2018-06-02 10:51 | NUR ---
SITTING UP IN BED TALKING TO . DENIES PAIN OR NEEDS. CALL LIGHT IN REACH
[2018-06-02 11:17] VITALS: BP 119/56
--- NOTE | 2018-06-02 16:17 | NUR ---
SITTING ON SIDE OF BED COLORING. FSBS 61. HE IS ASYMPTOMATIC AND DENIES S/S. SNACK GIVEN. CALL LIGHT IN REACH
[2018-06-02 18:43] VITALS: BP 106/46
[2018-06-02 19:12] VITALS: BP 106/46
--- NOTE | 2018-06-02 19:14 | NUR ---
PATIENT IS SITTING UP IN BED. HE STATES HE HAS PAIN LEVEL 5/10. HIS NURSE WILL BE NOTIFIED. NO OTHER C/O OR REQUESTS AT THIS TIME. BED IS DOWN LOW WITH SIED RAILS UP X2. CALL LIGHT IS IN REACH.
--- NOTE | 2018-06-02 21:57 | NUR ---
PT RESTING IN BED WATCHING TV AND EATING HIS HS SNACK. NO FURTHER NEEDS VOICED.
--- NOTE | 2018-06-03 01:00 | NUR ---
PT UP TO BATHROOM WITH SBA. NO FURTHER NEEDS VOICED.
--- NOTE | 2018-06-03 04:58 | NUR ---
RESTING IN BED WITH EYES CLOSED.
[2018-06-03 05:59] VITALS: BP 114/49
[2018-06-03 07:41] LABS: ANION GAP 14.4 mmol/L (8-16); CALCIUM 7.9 mg/dL (8.5-10.1); CREATININE - SERUM 3.5 mg/dL (0.6-1.3); POTASSIUM - SERUM 3.4 mmol/L (3.5-5.1)
[2018-06-03 07:51] LABS: BASOPHILS 0.2 % (0-2); EOSINOPHILS 0.7 % (0-7); HEMATOCRIT 28.6 % (42.0-54.0); IMMATURE GRANULOCYTES 0.7 % (0-5); LYMPHOCYTES 10.3 % (15-50); MCH 26.5 pg (26.0-34.0); MCHC 31.5 g/dL (31.0-37.0); MCV 84.4 fL (80.0-100.0); MEAN PLATELET VOLUME 10.1 fL (7.4-10.4); MONOCYTES 13.5 % (2-11); NEUTROPHILS 74.6 % (40-80); RBC 3.39 10x6/uL (4.20-6.10); RDW 29.6 % (11.5-14.5); WBC 4.5 10x3/uL (4.8-10.8)
[2018-06-03 07:52] LABS: PLATELET COUNT 135 10x3/uL (130-400)
--- NOTE | 2018-06-03 07:59 | NUR ---
SITTING UP EATING BREAKFAST. NO S/S DISTRESS NOTED. CALL LIGHT IN REACH.
[2018-06-03 12:00] VITALS: BP 118/49
--- NOTE | 2018-06-03 12:01 | NUR ---
SITTING ON SIDE OF BED IN ROOM. FSBS 412. DR BUSTOS NOTIFIED. NO NEW ORDER.
--- NOTE | 2018-06-03 18:33 | NUR ---
BACK FROM DIALYSIS. FAMILY IN ROOM. CURRENTLY SITTING IN WC IN ROOM TALKING TO . OXYGEN IN PLACE. 2LNC. LUE STILL WEEPING.
--- NOTE | 2018-06-03 19:15 | NUR ---
PT SITTING UP ON SIDE OF BED, INFORMED PT THAT I WILL BE BACK SHORTLY TO DO ASSESSMENT, PT VERBALIZES UNDERSTANDING, DENIES NEEDS AT THIS TIME
[2018-06-03 20:30] VITALS: BP 114/641
--- NOTE | 2018-06-03 20:30 | NUR ---
ASSESSMENT PER FLOW SHEET, BILATERAL ARM AND RIGHT FOOT DRESSINGS CDI, NO DRAINAGE NOTED AT THIS TIME, PT REPORTS RIGHT HIP AND LEG PAIN, REQUESTS PAIN MED WITH 2100 MEDS, HEMESPLIT WITH DRESSING CDI, PT REPORTS BM, FLATUS, AND URINATES SMALL AMOUNTS, PT REQUESTED AND SERVED FRESH H20, DENIES FURTHER NEEDS, BED IN LOW POSITION, SIDE RAILS X 2, CALL LIGHT IN REACH
--- NOTE | 2018-06-03 21:31 | NUR ---
PT RESTING WITH EYES CLOSED, AROUSES TO SOFT VERBAL STIMULATION, OBTATINED FSBS, ADM 2100 MEDS AND PAIN MED PER MD ORDERS, SNACK PROVIDED, DENIES FURTHER NEEDS
--- NOTE | 2018-06-03 22:30 | NUR ---
PT AWAKE, WATCHING TV, DENIES NEEDS OR PAIN AT THIS TIME, BED IN LOW POSITION, SIDE RAILS X 2, CALL LIGHT IN REACH
[2018-06-04 00:14] VITALS: BP 131/62
--- NOTE | 2018-06-04 03:20 | NUR ---
PT AROUSES TO THIS RN AND ISABELLA SPENCER IN ROOM, PT INFORMED THAT HE WAS DUE FOR SHOWER LAST NIGHT, PT REQUESTS TO TAKE ONE, INFORMED PT THAT IT WILL BE AROUND 5AM, PT VERBALIZES UNDERSTANDING, DENIES NEEDS OR PAIN AT THIS TIME, BED IN LOW POSITION, SIDE RAILS X 2, CALL LIGHT IN REACH
--- NOTE | 2018-06-04 05:15 | NUR ---
PT UP TO SHOWER PER TJ TORREZ, RECYCLING WORKER
--- NOTE | 2018-06-04 05:45 | NUR ---
PT OUT OF SHOWER, DRESSED, BACK TO BED, DRESSINGS PLACED ON RIGHT SIDE OF FOOT, AND BOTH ARMS, PT DENIES FURTHER NEEDS
[2018-06-04 06:28] VITALS: BP 127/64
--- NOTE | 2018-06-04 06:30 | NUR ---
PT SITTING ON SIDE OF BED, OBTAINED FSBS, ADM 0600/0700 MEDS PER MD ORDERS, SEE EMAR, PT REQUESTED AND SERVED DECAF COFFEE, SNACK PROVIDED, PT DENIES FURTHER NEEDS OR PAIN
--- NOTE | 2018-06-04 08:27 | NUR ---
ALERT AND ORIENTED. NO C/O PAIN. BREAKFAST IN ROOM. CL IN REACH.
--- NOTE | 2018-06-04 12:01 | NUR ---
Nutrition Follow Up: Chart reviewed Diet: Renal ADA PO Intake: 82% meal avg BM: 06/03/18 Noted per Wound Care pt has open wound on R foot Labs reviewed - Glucose elevated Meds noted including Lasix, Lantus, Humalog Rec continue current diet. RD following.
[2018-06-04 12:06] VITALS: BP 121/47
--- NOTE | 2018-06-04 13:52 | NUR ---
SITTING UP IN CHAIR AT THIS TIME. PARTICIPATED IN THERAPY THIS AM.
--- NOTE | 2018-06-04 15:53 | NUR ---
NO CHANGE IN ASSESSMENT. RESP EVEN AND UNLABORED.
--- NOTE | 2018-06-04 19:53 | NUR ---
PATIENT RECEIVED SITTING UP IN BED. PATIENT ASSESSMENT DONE. PATIENT HAD NO C/O PAIN OR DISTRESS. PATIENT BED LOW. ALARM ON. CALL LIGHT WITHIN REACH. WILL CONTINUE TO MONITOR.
--- NOTE | 2018-06-05 00:24 | NUR ---
PATIENT LEFT JACKET SLEEVE WET. JACKET TAKEN OFF. NEW DRESSING APPLIED TO LEFT LOWER ARM. RIGHT ARM DRESSING REMOVED, C/D/I. BOTTOM SHEET CHANGED. CALL LIGHT WITHIN REACH. WILL CONTINUE TO MONITOR.
[2018-06-05 00:46] VITALS: BP 150/74
--- NOTE | 2018-06-05 02:38 | NUR ---
PT ASLEEP NO NEEDS NOTED FLUIDS AND CALL LIGHT WITHIN REACH
[2018-06-05 05:46] VITALS: BP 126/60
[2018-06-05 07:16] LABS: BASOPHILS 0.2 % (0-2); EOSINOPHILS 1.3 % (0-7); HEMATOCRIT 28.5 % (42.0-54.0); IMMATURE GRANULOCYTES 0.8 % (0-5); LYMPHOCYTES 20.2 % (15-50); MCH 26.7 pg (26.0-34.0); MCHC 31.6 g/dL (31.0-37.0); MCV 84.6 fL (80.0-100.0); MEAN PLATELET VOLUME 9.9 fL (7.4-10.4); MONOCYTES 14.7 % (2-11); NEUTROPHILS 62.8 % (40-80); PLATELET COUNT 139 10x3/uL (130-400); RBC 3.37 10x6/uL (4.20-6.10); RDW 29.5 % (11.5-14.5); WBC 4.8 10x3/uL (4.8-10.8)
[2018-06-05 07:17] LABS: ANION GAP 13.4 mmol/L (8-16); CARBON DIOXIDE 29.5 mmol/L (21.0-32.0); CREATININE - SERUM 2.5 mg/dL (0.6-1.3)
[2018-06-05 07:19] LABS: POTASSIUM - SERUM 2.9 mmol/L (3.5-5.1)
--- NOTE | 2018-06-05 07:41 | NUR ---
EYES CLOSED. RESP EVEN AND UNLABORED. NO DISTRESS NOTED.
--- NOTE | 2018-06-05 08:20 | NUR ---
DR BUSTOS NOTIFIED OF k+ 2.9. HAS DIALYSIS TODAY.
[2018-06-05 12:22] VITALS: BP 109/44
--- NOTE | 2018-06-05 17:09 | NUR ---
NO CHANGE IN ASSESSMENT. SPOKE WITH DIALYSIS RE: DIALYSIS TODAY. HAS NOT GONE FOR DIALYSIS TODAY. FAMILY AT BS.
--- NOTE | 2018-06-05 17:40 | NUR ---
Dialysis Coordinator: This patient was previously accepted at [facility]. His schedule is as follows: Arrive - 11:15am On-Time - 11:30am. First appointment 06/10/18 @ 10:45am for paperwork. Patient needs to bring two forms of ID (one with a photo) and insurance cards to first appointment. Welcome Letter faxed to Eunice BARTON to provide to patient. BRITTANI BORJAS.
--- NOTE | 2018-06-05 18:19 | NUR ---
TOOK TO DIALYSIS AT THIS TIME.
--- NOTE | 2018-06-05 20:45 | NUR ---
PATIENT RETURN FROM DIALYSIS TREATMENT. VITAL SIGNS OBTAINED. THE PATIENT DEMONSTRATES APPROPRIATE USE OF A CALL LIGHT. THE PATIENT APPEARS COMFORTABLE WITH NO QUESTIONS OR CONCERNS AT THIS TIME.
[2018-06-05 21:59] VITALS: BP 103/52
[2018-06-06 00:32] VITALS: BP 100/53
--- NOTE | 2018-06-06 04:04 | NUR ---
THE PATIENT APPEARS TO BE SLEEPING. BED IN LOW POSITION WITH SIDERAILS X2 AND CALL LIGHT WITHIN REACH.
[2018-06-06 06:22] VITALS: BP 138/62
--- NOTE | 2018-06-06 08:00 | NUR ---
SHIFT ASSMT COMPLETED.
--- NOTE | 2018-06-06 12:00 | NUR ---
EATING LUNCH.CL IN REACH.
[2018-06-06 12:01] VITALS: BP 118/59
[2018-06-06 18:00] VITALS: BP 118/42
[2018-06-06 19:00] VITALS: BP 113/34
--- NOTE | 2018-06-06 19:10 | NUR ---
THE PATIENT WAS WATCHING TELEVISION WHEN STAFF ENTERED HIS AREA. BED IN THE LOW POSITION WITH SIDERAILS X2 AND CALL LIGHT WITHIN REACH. PATIENT EDUCATED ON WOUND CARE AND DEMONSTRATES UNDERSTANDING VIA TEACHBACK METHOD. THE PATIENT APPEARS COMFORTABLE WITH NO QUESTIONS OR CONCERNS AT THIS TIME.
[2018-06-07 00:48] VITALS: BP 123/45
--- NOTE | 2018-06-07 03:21 | NUR ---
THE PATIENT IS AWAKE AND DENIES ANY QUESTIONS OR COMPLAINTS.
[2018-06-07 07:12] LABS: BASOPHILS 0.4 % (0-2); EOSINOPHILS 1.1 % (0-7); HEMATOCRIT 28.7 % (42.0-54.0); HEMOGLOBIN 8.9 g/dL (13.5-17.5); IMMATURE GRANULOCYTES 0.9 % (0-5); LYMPHOCYTES 25.7 % (15-50); MCH 27.1 pg (26.0-34.0); MEAN PLATELET VOLUME 10.4 fL (7.4-10.4); MONOCYTES 19.3 % (2-11); NEUTROPHILS 52.6 % (40-80); PLATELET COUNT 153 10x3/uL (130-400); RBC 3.29 10x6/uL (4.20-6.10); RDW 29.4 % (11.5-14.5); WBC 4.6 10x3/uL (4.8-10.8)
[2018-06-07 07:14] LABS: MCV 87.2 fL (80.0-100.0)
[2018-06-07 07:18] LABS: ANION GAP 15.3 mmol/L (8-16); CALCIUM 8.2 mg/dL (8.5-10.1); CARBON DIOXIDE 30.1 mmol/L (21.0-32.0); CREATININE - SERUM 2.1 mg/dL (0.6-1.3); POTASSIUM - SERUM 3.4 mmol/L (3.5-5.1)
--- NOTE | 2018-06-07 08:00 | NUR ---
PATIENT SITTING UP IN WHEELCHAIR. EATTING BREAKFAST DOWN IN REHAB ROOM. VOICES NO NEEDS AT THIS TIME. WILL CONTINUE WITH PLAN OF CARE.
[2018-06-07] MEDS ORDERED: MIDODRINE HCL5 MG PO (08:50)
--- NOTE | 2018-06-07 09:46 | NUR ---
PATIENT WORKING WITH OCCUPATIONAL THERAPIST. HELPED WITH SHOWER
[2018-06-07 11:40] VITALS: BP 135/63
--- NOTE | 2018-06-07 12:59 | NUR ---
PATIENT TAKEN DOWN TO DIALYSIS CLINIC BY THIS NURSE
--- NOTE | 2018-06-07 15:14 | NUR ---
PATIENT IS DISCHARGING HOME IN AM WITH SPOUSE. [facility] PER PATIENT CHOICE WILL RESUME CARE OF PATIENT AT HOME. PATIENT WILL HAVE DIALYSIS AT [facility] ON @ 11:30. [facility] LETTER GIVEN TO PATIENT AND WAS REVIEWED WITH PATIENT AND SPOUSE.AN APPOINTMENT WITH DR. SAUNDRA YANG 06/18/18 @ 3:15. PATIENT CHOICE FORM FOR HOME HEALTH AND [facility] FORMS SIGNED AND COPIES GIVEN TO PATIENT AND FILED IN CHART. DISCHARGE INSTRUCTIONS WITH [facility] [employer] FAXED TO PCP AND TO HOME HEALTH.
--- NOTE | 2018-06-07 17:00 | NUR ---
PATIENT BROUGHT BACK FOR DIALYSIS TREATMENT.
[2018-06-07 18:29] VITALS: BP 118/63
[2018-06-07 19:00] VITALS: BP 118/65
--- NOTE | 2018-06-07 19:52 | NUR ---
PATIENT RECEIVED SITTING UP IN BED WATCHING TV. PATIENT ASSESSMENT & VITAL SIGNS DONE. PATIENT HAD NO C/O PAIN OR DISTRESS. PATIENT BED LOW. ALARM ON. CALL LIGHT WITHIN REACH. WILL CONTINUE TO MONITOR.
--- NOTE | 2018-06-08 01:13 | NUR ---
PATIENT C/O NAUSEA. PATIENT GIVEN LEMON CHEROKEE SODA. EFFECTIVE FOR NAUSEA. CALL LIGHT WITHIN REACH. WILL CONTINUE TO MONITOR.
[2018-06-08 05:42] VITALS: BP 113/64
--- NOTE | 2018-06-08 07:51 | NUR ---
PATIENT SITTING UP IN WHEELCHAIR AT BEDSIDE. ALERT/ORIENT. CALL LIGHT WITHIN REACH. VOICES NO NEEDS AT THIS TIME. PLAN TO DISCHARGE TO HOME TODAY
--- NOTE | 2018-06-08 10:58 | NUR ---
PATIENT HERE TO TAKE PATIENT HOME. DISCHARGE ORDERS GONE OVER WITH PATIENT AND . PATIENTS AND STATE THAT PATIENT HAS ALL DISCHARGE MEDICATIONS AT HOME. DOES NOT WANT THIS NURSE TO CALL ANY MEDICATIONS INTO PHARMACY
== END 2018-06-08 11:05 | disposition home health service (06) | DRG 91 ==
LOC: D.REHAB 23:48
PROVIDERS: ADMIT Emergency Medicine
DX: G92 Toxic encephalopathy (principal); A41.9 Sepsis, unspecified organism; J96.21 Acute and chronic respiratory failure with hypoxia; I13.0 Hypertensive heart and chronic kidney disease with heart failure and stage 1 through stage 4 chronic kidney disease, or unspecified chronic kidney disease; N17.9 Acute kidney failure, unspecified; J90 Pleural effusion, not elsewhere classified; I50.40 Unspecified combined systolic (congestive) and diastolic (congestive) heart failure; J44.1 Chronic obstructive pulmonary disease with (acute) exacerbation; R04.2 Hemoptysis; R13.12 Dysphagia, oropharyngeal phase; E11.22 Type 2 diabetes mellitus with diabetic chronic kidney disease; N18.9 Chronic kidney disease, unspecified; R47.1 Dysarthria and anarthria; I73.9 Peripheral vascular disease, unspecified; F32.9 Major depressive disorder, single episode, unspecified; G25.81 Restless legs syndrome; D50.9 Iron deficiency anemia, unspecified; D69.6 Thrombocytopenia, unspecified; G89.29 Other chronic pain; E86.0 Dehydration; I48.91 Unspecified atrial fibrillation; J44.9 Chronic obstructive pulmonary disease, unspecified; Z95.0 Presence of cardiac pacemaker; G47.33 Obstructive sleep apnea (adult) (pediatric); E87.8 Other disorders of electrolyte and fluid balance, not elsewhere classified; K75.9 Inflammatory liver disease, unspecified; E78.5 Hyperlipidemia, unspecified; Z95.2 Presence of prosthetic heart valve; E11.65 Type 2 diabetes mellitus with hyperglycemia; Z99.2 Dependence on renal dialysis